=== PATIENT | male | born 1965 | race Caucasian/White ===

== ENCOUNTER 2018-10-13 21:17 | Inpatient (IN) | payer MEDICAID, MEDICARE, OTHER ==
[2018-10-13] MEDS ORDERED: CLON1TAB8 PO (21:43)
[2018-10-13] MEDS ORDERED: ZOLO100T PO (21:44)
[2018-10-13] MEDS ORDERED: ZYPR2.5T2 PO (21:45)
--- NOTE | 2018-10-13 22:15 | REPVR ---
EXAM: CT Head Without Contrast EXAM DATE/TIME: 10/13/2018 9:56 PM CLINICAL HISTORY: 53 years old, male; Signs and symptoms; Altered mental status/memory loss; Confusion or disorientation; Additional info: AMS TECHNIQUE: Axial computed tomography images of the head/brain without contrast. All CT scans at this facility use at least one of these dose optimization techniques: automated exposure control; mA and/or kV adjustment per patient size (includes targeted exams where dose is matched to clinical indication); or iterative reconstruction. STROKE PROTOCOL was implemented. COMPARISON: No relevant prior studies available. FINDINGS: Brain: There is no evidence of infarct, stovall-white matter differentiation is preserved. There is no hemorrhage or extra-axial collection. There is no mass. Ventricles: There is no hydrocephalus. Bones/joints: Unremarkable. No acute fracture. Sinuses: There is mild ethmoid sinus mucosal thickening. Mastoid air cells: Visualized mastoid air cells are unremarkable. No mastoid effusion. Soft tissues: Unremarkable. IMPRESSION: No intracranial lesion or injury. ASSESSMENT: ASPECTS ([place] Stroke Program Early CT Score) is 10. Electronically signed by: Balwinder Elias On 10/13/2018 22:14:39 PM
[2018-10-13 22:23] LABS: BASO # 0.1 10^3/uL (0.0-0.2); BASO % 0.3 % (0.0-1.0); EOS # 0.3 10^3/uL (0.0-0.50); EOS % 1.9 % (0.0-3.0); HEMATOCRIT 44.2 % (42.0-52.0); HEMOGLOBIN 14.6 g/dl (13.5-17.5); LYMPH # 2.8 10^3/uL (1.5-4.5); LYMPH % 18.8 % (24.0-44.0); MEAN CORPUSCULAR HEMOGLOBIN 29.3 pg (27.0-33.0); MEAN CORPUSCULAR VOLUME 88.8 fl (80.0-96.0); MONO # 0.7 10^3/uL (0.0-0.8); MONO % 4.6 % (0.0-5.0); NEUTROPHILS % 73.7 % (36.0-66.0); PLATELET COUNT, AUTOMATED 344 10^3/uL (150-450); RED BLOOD COUNT 4.98 10^6/uL (4.30-6.10); WHITE BLOOD COUNT 14.9 10^3/uL (4.0-10.0)
[2018-10-13] MEDS ORDERED: NS 1,000 ML IV ONE (22:30)
[2018-10-13 22:43] LABS: INR 1.08; PROTHROMBIN TIME 14.1 SECONDS (12.1-14.4)
[2018-10-13 22:44] LABS: PARTIAL THROMBOPLASTIN TIME 24.5 SECONDS (25.4-37.6)
[2018-10-13 22:53] LABS: INFLUENZA A AMPLIFICATION NEGATIVE (NEGATIVE); INFLUENZA B AMPLIFICATION NEGATIVE (NEGATIVE)
[2018-10-13] MEDS ORDERED: ISOVUE-370 76% 100ML VIAL (Q9967) As Ordered ONE (23:20)
[2018-10-13 23:29] LABS: AMPHETAMINES LEVEL URINE NEGATIVE (NEGATIVE); BARBITURATES URINE NEGATIVE (NEGATIVE); BENZODIAZEPINES URINE POSITIVE (NEGATIVE); CANNABINOIDS URINE NEGATIVE (NEGATIVE); COCAINE METABOLITE URINE NEGATIVE (NEGATIVE); METHADONE URINE NEGATIVE (NEGATIVE); OPIATES URINE NEGATIVE (NEGATIVE); PHENCYCLIDINE URINE NEGATIVE (NEGATIVE)
[2018-10-13 23:37] LABS: ACETAMINOPHEN LEVEL < 2.0 UG/ML (10.0-30.0); ALBUMIN 3.1 GM/DL (3.2-5.2); ALT/SGPT 21 U/L (12-78); BILIRUBIN,DIRECT < 0.1 MG/DL (0.0-0.2); BILIRUBIN,TOTAL 0.2 MG/DL (0.2-1.0); BLOOD UREA NITROGEN 13 MG/DL (7-18); CALCIUM LEVEL 7.9 MG/DL (8.5-10.1); CARBON DIOXIDE LEVEL 28 MEQ/L (21-32); CHLORIDE LEVEL 108 MEQ/L (98-107); CPK CREATINE PHOSPHOKINASE 52 U/L (39-308); CREATININE FOR GFR 1.04 MG/DL (0.70-1.30); ETHYL ALCOHOL (ETHANOL) 0.006 % (0.000-0.010); GLOMERULAR FILTRATION RATE > 60.0 (>56); GLUCOSE, FASTING 85 MG/DL (70-100); MB/CK RELATIVE INDEX 2.12 (< OR =4); POTASSIUM SERUM 3.4 MEQ/L (3.5-5.1); SALICYLATE LEVEL < 1.7 MG/DL (5.0-30.0); SODIUM LEVEL 145 MEQ/L (136-145); TOTAL PROTEIN 6.1 GM/DL (6.4-8.2); TROPONIN I < 0.02 NG/ML (< 0.10)
--- NOTE | 2018-10-14 00:12 | REPVR ---
EXAM: CT Angiography Chest With Contrast EXAM DATE/TIME: 10/13/2018 11:14 PM CLINICAL HISTORY: 53 years old, male; Pain; Chest pain; Type not specified TECHNIQUE: Axial computed tomographic angiography images of the chest with intravenous contrast using CT angiography protocol. All CT scans at this facility use at least one of these dose optimization techniques: automated exposure control; mA and/or kV adjustment per patient size (includes targeted exams where dose is matched to clinical indication); or iterative reconstruction. Coronal and sagittal reformatted images were created and reviewed. MIP reconstructed images were created and reviewed. CONTRAST: Contrast Material: 100 ml of iso; Contrast Route: ac COMPARISON: CR Chest, 2 view PA, Lat 10/13/2018 10:02 PM FINDINGS: Pulmonary arteries: There is no evidence of pulmonary arterial emboli. Aorta: There is no evidence of thoracic aortic aneurysm or dissection. Lungs: Normal. No consolidation. No masses. Pleural space: Normal. No pneumothorax. No pleural effusion. Heart: Normal. No cardiomegaly. No pericardial effusion. Lymph nodes: Unremarkable. No enlarged lymph nodes. Bones/joints: Unremarkable. No acute fracture. Soft tissues: Unremarkable. IMPRESSION: 1. No thoracic aortic aneurysm or dissection. 2. No pulmonary emboli. 3. No acute findings. Electronically signed by: Balwinder Elias On 10/14/2018 00:12:29 AM
--- NOTE | 2018-10-14 00:16 | REPVR ---
EXAM: CT Abdomen and Pelvis With Contrast EXAM DATE/TIME: 10/13/2018 10:26 PM CLINICAL HISTORY: 53 years old, male; Pain; Abdominal pain; Generalized; Additional info: Abd pain TECHNIQUE: Axial computed tomography images of the abdomen and pelvis with intravenous contrast. All CT scans at this facility use at least one of these dose optimization techniques: automated exposure control; mA and/or kV adjustment per patient size (includes targeted exams where dose is matched to clinical indication); or iterative reconstruction. Coronal and sagittal reformatted images were created and reviewed. CONTRAST: Contrast Material: 100 ml of iso; Contrast Route: ac COMPARISON: No relevant prior studies available. FINDINGS: Lower thorax: See chest CT ABDOMEN: Liver: The liver is normal. Gallbladder and bile ducts: The gallbladder is normal. Pancreas: Normal. No ductal dilation. Spleen: The spleen is heterogeneous due to the arterial phase imaging. No definite abnormality. The spleen is normal. Adrenals: The adrenal glands are normal. Kidneys and ureters: The kidneys are normal. There is no hydronephrosis. Stomach and bowel: Normal. No obstruction. No mucosal thickening. Appendix: No evidence of appendicitis. PELVIS: Bladder: The bladder is normal with no evidence of calculi. Reproductive: The seminal vesicles are enlarged. ABDOMEN and PELVIS: Intraperitoneal space: Normal. No free air. No significant fluid collection. Bones/joints: Mild anterior compression of T10 and T12. This appears chronic. No acute fracture.. No dislocation. Soft tissues: Unremarkable. Vasculature: There is no abdominal aortic aneurysm or dissection. There is no aneurysm, stenosis or dissection of the iliac arteries. Lymph nodes: Normal. No enlarged lymph nodes. IMPRESSION: 1. No abdominal aortic aneurysm or dissection. No vascular abnormality. 2. No acute findings. Electronically signed by: Balwinder Elias On 10/14/2018 00:16:31 AM
[2018-10-14] MEDS ORDERED: CLON0.5T8 PO (00:34)
[2018-10-14] MEDS ORDERED: ZYPR2.5T2 PO (00:34)
[2018-10-14] MEDS ORDERED: ZOLO100T PO (00:34)
--- NOTE | 2018-10-14 06:25 | HPE ---
DATE OF ADMISSION: 10/13/2018 ATTENDING PHYSICIAN: Dr. Rogers CHIEF COMPLAINT: General sickness. HISTORY OF PRESENT ILLNESS: The patient is a 53-year-old white male with history of post traumatic stress disorder (PTSD) as well as anxiety who presented to the hospital for evaluation of general sickness. History is provided by himself as well as by review of the chart, however, the patient is a poor historian. Per emergency room (ER) staff, the patient stated he was sick for a couple of days with some nausea, vomiting and diarrhea and the ambulance brought him to the ER, however, there is no detailed information available. In the ER, his workup was not significant. It seems that he is confused, so decision to admit him for observation and plan for a psychiatric consultation tomorrow. REVIEW OF SYSTEMS: No fever. No chills. No headache. No blurry vision. No shortness of breath. No chest pain. No abdominal pain. No diarrhea. All other systems reviewed, but negative. PAST MEDICAL HISTORY: 1. PTSD. 2. Severe anxiety. PAST SURGICAL HISTORY: None. FAMILY HISTORY: Unknown. ALLERGIES: No known drug allergies. MEDICATIONS: - clonazepam 0.5 mg as needed - Zyprexa 2.5 mg by mouth daily - Zoloft 150 mg by mouth daily SOCIAL HISTORY: No tobacco use. No alcohol abuse. No illicit drug abuse. He is a full code. He is and lives with his at home. No children. PHYSICAL EXAMINATION: Vitals: Temperature 98.1, pulse 69, respiratory rate 16, blood pressure 134/81, oxygen saturation 98% on room air. General: He is awake, alert and oriented times three. He is in no acute distress. HEENT: Atraumatic. Pupils equal round and reactive to light. No jaundice. Extraocular muscles intact. Ears, nose and throat are normal. Mouth mucous dry. Neck: No jugular venous distention (JVD). No bruits. Lungs: Clear. No wheezes, no crackles. Heart: S1 and S2, regular. No murmur. Abdomen: Soft. Bowel sounds positive. Nontender. Extremities: No edema in bilateral lower extremities. Skin: No rash. Neurologic: Nonfocal. Psychological: No acute psychosis. DIAGNOSTIC AND LAB STUDIES: CBC and differential with WBC 14.9, hemoglobin/hematocrit (H/H) 14.6/44, and platelets 344. Sodium 145, potassium 3.4, chloride 108, bicarbonate 28, BUN 30, creatinine 1.0, glucose 81. Chest x-ray, head CT and CT of abdomen and pelvis all reviewed and normal. IMPRESSION: 1. Altered mental status. 2. Post traumatic stress disorder. 3. Anxiety. PLAN: The patient will be admitted to medical surgical floor for observation. We are continuing his home medications. Will ask for psychiatry evaluation prior to discharge.
--- NOTE | 2018-10-14 07:10 | ECGEPIP ---
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
[2018-10-14 08:00] VITALS: BP 126/72
--- NOTE | 2018-10-14 08:10 | REP ---
PA and lateral chest: There are no comparisons. The lung herrmann are clear. The cardiac size is normal. The marin, mediastinum, and skeletal structures are unremarkable. Impression: Negative PA and lateral chest. Electronically Signed by Florentino Valencia MD 10/14/2018 08:01 A
[2018-10-14 12:23] LABS: HEMATOCRIT 44.8 % (42.0-52.0); HEMOGLOBIN 14.6 g/dl (13.5-17.5); MEAN CORPUSCULAR HGB CONC 32.6 g/dl (32.0-36.5); MEAN CORPUSCULAR VOLUME 89.1 fl (80.0-96.0); PLATELET COUNT, AUTOMATED 338 10^3/uL (150-450); RED BLOOD COUNT 5.03 10^6/uL (4.30-6.10); WHITE BLOOD COUNT 13.6 10^3/uL (4.0-10.0)
[2018-10-14 13:13] LABS: ALT/SGPT 17 U/L (12-78); BILIRUBIN,TOTAL 0.5 MG/DL (0.2-1.0); BLOOD UREA NITROGEN 11 MG/DL (7-18); CALCIUM LEVEL 7.9 MG/DL (8.5-10.1); CARBON DIOXIDE LEVEL 25 MEQ/L (21-32); CHLORIDE LEVEL 106 MEQ/L (98-107); CREATININE FOR GFR 0.96 MG/DL (0.70-1.30); GLOMERULAR FILTRATION RATE > 60.0 (>56); GLUCOSE, FASTING 77 MG/DL (70-100); POTASSIUM SERUM 3.5 MEQ/L (3.5-5.1); SODIUM LEVEL 143 MEQ/L (136-145); THYROID STIMULATING HORMONE 0.813 uIU/ML (0.358-3.740); TOTAL PROTEIN 5.9 GM/DL (6.4-8.2)
[2018-10-14] MEDS ORDERED: HALOPERIDOL 5 MG/ML VIAL (J1630) IV ONE (13:30)
--- NOTE | 2018-10-14 14:22 | IPNPDOC ---
Date Seen The patient was seen on 10/14/18. Progress Note SUBJECTIVE: Pt is slow to respond and does not give history of why he is in the hospital. He says he lives with his . he does not recall if he had diarrhea. c/o weakness. does not recall if he had breakfast or if he had ordered lunch. Per [id number] IRMA, he has been seen in different ERs for "odd behavior" int he past 2 weeks. workup negative. PHYSICAL EXAMINATION: General: He is awake, alert and oriented to person. slow to respond and takes about 5-10 seconds to answer questions.fluent no facial asymmetry HEENT: Atraumatic. Pupils equal round and reactive to light. No jaundice. Extraocular muscles intact. Ears, nose and throat are normal. Mouth mucous dry. Neck: No jugular venous distention (JVD). No bruits. Lungs: Clear. No wheezes, no crackles. Heart: S1 and S2, regular. No murmur. Abdomen: Soft. Bowel sounds positive. Nontender. Extremities: No edema in bilateral lower extremities. Skin: No rash. Neurologic: 5/5 motor no snesory deficit.He is awake, alert and oriented to person. slow to respond and takes about 5-10 seconds to answer questions.fluent no facial asymmetry DIAGNOSTIC AND LAB STUDIES/IMAGING: REVIEWED, PLS SEE BELOW ASSESSMENT AND PLAN: The patient is a 53-year-old white male with history of post traumatic stress disorder (PTSD) as well as anxiety who presented to the hospital for evaluation of general sickness. History is provided by himself as well as by review of the chart, however, the patient is a poor historian. Per emergency room (ER) staff, the patient stated he was sick for a couple of days with some nausea, vomiting and diarrhea and the ambulance brought him to the ER, however, there is no detailed information available. In the ER, his workup was not significant. It seems that he is confused, so decision to admit him for observation and plan for a psychiatric consultation. 1. Altered mental status. workup so far is negative aside from urine tox: benzo obtain records from previous hospitalizations and MD office. MRI brain if not done yet. psychiatrist consulted. will consult neurology if no improvement. no fever and meningeal signs to suspect meningiitis or warrant an lp. 2. Post traumatic stress disorder. 3. Anxiety. VS, I&O, 24H, Fishbone Vital Signs/I&O Vital Signs Date Time Temp Pulse Resp B/P (MAP) Pulse Ox O2 Delivery O2 Flow Rate FiO2 10/14/18 08:00 99.4 79 17 126/72 (90) 93 10/14/18 07:54 Room Air I&O- Last 24 Hours up to 6 AM 10/14/18 06:00 Intake Total 1000 ml Output Total 70 ml Balance 930 ml Laboratory Data 24H LABS Laboratory Tests 2 10/13/18 22:12: Ammonia 29 10/13/18 22:13: Immature Granulocyte % (Auto) 0.7, White Blood Count 14.9H, Red Blood Count 4.98, Hemoglobin 14.6, Hematocrit 44.2, Mean Corpuscular Volume 88.8, Mean Corpuscular Hemoglobin 29.3, Mean Corpuscular Hemoglobin Concent 33.0, Red Cell Distribution Width 13.7, Platelet Count 344, Neutrophils (%) (Auto) 73.7H, Lymphocytes (%) (Auto) 18.8L, Monocytes (%) (Auto) 4.6, Eosinophils (%) (Auto) 1.9, Basophils (%) (Auto) 0.3, Neutrophils # (Auto) 11.0H, Lymphocytes # (Auto) 2.8, Monocytes # (Auto) 0.7, Eosinophils # (Auto) 0.3, Basophils # (Auto) 0.1, Nucleated Red Blood Cells % (auto) 0.0, Anion Gap 9, Glomerular Filtration Rate > 60.0, Lactic Acid Level 0.7, Calcium Level 7.9L, Aspartate Amino Transf (AST/SGOT) 15, Alanine Aminotransferase (ALT/SGPT) 21, Alkaline Phosphatase 47, Total Bilirubin 0.2, Direct Bilirubin < 0.1, Total Creatine Kinase 52, Creatine Kinase MB 1.0, Creatine Kinase MB Relative Index 2.12, Troponin I < 0.02, Total Protein 6.1L, Albumin 3.1L, Albumin/Globulin Ratio 1.03, Thyroid Stimulating Hormone (TSH) 1.600, Salicylates Level < 1.7L, Acetaminophen Level < 2.0L, Ethyl Alcohol Level 0.006, Influenza Type A (RT-PCR) NEGATIVE, Influenza Type B (RT- PCR) NEGATIVE 10/13/18 22:15: Prothrombin Time 14.1, Prothromb Time International Ratio 1.08, Activated Partial Thromboplast Time 24.5L 10/13/18 22:19: Osmolality 297H 10/13/18 23:01: Urine Color YELLOW, Urine Appearance CLEAR, Urine pH 5.0, Urine Specific [place] 1.021, Urine Protein NEGATIVE, Urine Glucose (UA) NEGATIVE, Urine Ketones 1+H, Urine Blood NEGATIVE, Urine Nitrite NEGATIVE, Urine Bilirubin NEGATIVE, Urine Urobilinogen 0.2, Urine Leukocyte Esterase NEGATIVE, Urine WBC (Auto) 1, Urine RBC (Auto) 1, Urine Hyaline Casts (Auto) 0, Urine Bacteria (Auto) NEGATIVE, Urine Squamous Epithelial Cells 0, Urine Mucus (Auto) SMALL, Urine Sperm (Auto) , Urine Amphetamines Screen NEGATIVE, Urine Benzodiazepines Screen POSITIVEH, Urine Opiates Screen NEGATIVE, Urine Methadone Screen NEGATIVE, Urine Barbiturates Screen NEGATIVE, Urine Phencyclidine Screen NEGATIVE, Urine Cocaine Metabolite Screen NEGATIVE, Urine Cannabinoids Screen NEGATIVE 10/14/18 12:06: Nucleated Red Blood Cells % (auto) 0.0, Anion Gap 12, Glomerular Filtration Rate > 60.0, Blood Urea Nitrogen 11, Creatinine 0.96, Sodium Level 143, Potassium Level 3.5, Chloride Level 106, Carbon Dioxide Level 25, Calcium Level 7.9L, Aspartate Amino Transf (AST/SGOT) 13, Alanine Aminotransferase (ALT/SGPT) 17, Alkaline Phosphatase 44L, Total Bilirubin 0.5#, Total Protein 5.9L, Albumin 3.0L, Ammonia 34H, Albumin/Globulin Ratio 1.03, Thyroid Stimulating Hormone (TSH) 0.813 CBC/BMP Laboratory Tests 10/13/18 22:13 Red Blood Count 4.98, Mean Corpuscular Volume 88.8, Mean Corpuscular Hemoglobin 29.3, Mean Corpuscular Hemoglobin Concent 33.0, Red Cell Distribution Width 13.7, Neutrophils (%) (Auto) 73.7 H, Lymphocytes (%) (Auto) 18.8 L, Monocytes (%) (Auto) 4.6, Eosinophils (%) (Auto) 1.9, Basophils (%) (Auto) 0.3, Neutrophils # (Auto) 11.0 H, Lymphocytes # (Auto) 2.8, Monocytes # (Auto) 0.7, Eosinophils # (Auto) 0.3, Basophils # (Auto) 0.1 10/14/18 12:06 Red Blood Count 5.03, Mean Corpuscular Volume 89.1, Mean Corpuscular Hemoglobin 29.0, Mean Corpuscular Hemoglobin Concent 32.6, Red Cell Distribution Width 13.8, Calcium Level 7.9 L, Aspartate Amino Transf (AST/SGOT) 13, Alanine Aminotransferase (ALT/SGPT) 17, Alkaline Phosphatase 44 L, Total Bilirubin 0.5 #, Total Protein 5.9 L, Albumin 3.0 L Microbiology Microbiology 10/13/18 Blood Culture, Received Pending 10/13/18 Blood Culture, Received Pending JOSE CELESTIN MD Oct 14, 2018 14:22
[2018-10-14 14:55] LABS: C REACTIVE PROTEIN QUANTITATIV 0.46 MG/DL (0.00-0.30)
[2018-10-14 15:03] LABS: PROLACTIN 4.1 NG/ML (2.1-17.7)
[2018-10-14 15:57] LABS: ERYTHROCYTE SEDIMENTATION RATE 2 mm/hr (0-20)
[2018-10-14] MEDS: OLANZapine 2.5MG TABLET PO SCH (19:58)
[2018-10-14 22:00] VITALS: BP 129/72
[2018-10-15 05:56] LABS: BASO % 0.3 % (0.0-1.0); EOS # 0.1 10^3/uL (0.0-0.50); EOS % 0.8 % (0.0-3.0); HEMOGLOBIN 14.5 g/dl (13.5-17.5); LYMPH # 1.5 10^3/uL (1.5-4.5); LYMPH % 12.8 % (24.0-44.0); MEAN CORPUSCULAR HEMOGLOBIN 29.2 pg (27.0-33.0); MEAN CORPUSCULAR VOLUME 88.7 fl (80.0-96.0); MONO # 0.5 10^3/uL (0.0-0.8); MONO % 4.1 % (0.0-5.0); NEUTROPHILS # 9.6 10^3/uL (1.8-7.7); NEUTROPHILS % 81.5 % (36.0-66.0); PLATELET COUNT, AUTOMATED 328 10^3/uL (150-450); RED BLOOD COUNT 4.96 10^6/uL (4.30-6.10); WHITE BLOOD COUNT 11.8 10^3/uL (4.0-10.0)
[2018-10-15 06:00] VITALS: BP 120/73
[2018-10-15 06:14] LABS: ERYTHROCYTE SEDIMENTATION RATE 3 mm/hr (0-20)
[2018-10-15 06:21] LABS: ALBUMIN 3.1 GM/DL (3.2-5.2); ALT/SGPT 19 U/L (12-78); BILIRUBIN,TOTAL 0.7 MG/DL (0.2-1.0); BLOOD UREA NITROGEN 14 MG/DL (7-18); C REACTIVE PROTEIN QUANTITATIV 0.33 MG/DL (0.00-0.30); CALCIUM LEVEL 7.7 MG/DL (8.5-10.1); CARBON DIOXIDE LEVEL 25 MEQ/L (21-32); CHLORIDE LEVEL 110 MEQ/L (98-107); CREATININE FOR GFR 1.01 MG/DL (0.70-1.30); GLOMERULAR FILTRATION RATE > 60.0 (>56); GLUCOSE, FASTING 86 MG/DL (70-100); POTASSIUM SERUM 3.6 MEQ/L (3.5-5.1); SODIUM LEVEL 145 MEQ/L (136-145)
[2018-10-15] MEDS: SERTRALINE HCL 50 MG TAB PO SCH (09:56)
--- NOTE | 2018-10-15 11:26 | IPNPDOC ---
Date Seen The patient was seen on 10/15/18. Progress Note SUBJECTIVE:c/o pain in b/l lower quadrant dull achy no radiation. denies constipation, dysuria. negative u/a, negative ct abd pelvis, neg lactic acid. PHYSICAL EXAMINATION: General: He is awake, alert and oriented to person. slow to respond and takes about 5-10 seconds to answer questions.fluent no facial asymmetry HEENT: Atraumatic. Pupils equal round and reactive to light. No jaundice. Extraocular muscles intact. Ears, nose and throat are normal. Mouth mucous dry. Neck: No jugular venous distention (JVD). No bruits. Lungs: Clear. No wheezes, no crackles. Heart: S1 and S2, regular. No murmur. Abdomen: Soft. Bowel sounds positive. no rebound n o guarding Extremities: No edema in bilateral lower extremities. Skin: No rash. Neurologic: 5/5 motor no snesory deficit.He is awake, alert and oriented to person. slow to respond and takes about 5-10 seconds to answer questions.fluent no facial asymmetry DIAGNOSTIC AND LAB STUDIES/IMAGING: REVIEWED, PLS SEE BELOW ASSESSMENT AND PLAN: The patient is a 53-year-old white male with history of post traumatic stress disorder (PTSD) as well as anxiety who presented to the hospital for evaluation of general sickness. History is provided by himself as well as by review of the chart, however, the patient is a poor historian. Per emergency room (ER) staff, the patient stated he was sick for a couple of days with some nausea, vomiting and diarrhea and the ambulance brought him to the ER, however, there is no detailed information available. In the ER, his workup was not significant. It seems that he is confused, so decision to admit him for observation and plan for a psychiatric consultation. 1. Altered mental status. workup so far is negative aside from urine tox: benzo obtain records from previous hospitalizations and MD office. MRI brain if not done yet. psychiatrist consulted. will consult neurology if no improvement. no fever and meningeal signs to suspect meningiitis or warrant an lp. 2. Post traumatic stress disorder. 3. Anxiety. 4. abdominal pain. denies substance abuse to suspect withdrawal. ctabd pelvis ua lactic acid negative. white count decreasing without fever. 5. reactive leukocytosis disposition: medical workup negative. awaiting mri brain and psych consult. VS, I&O, 24H, [facility] Vital Signs/I&O Vital Signs Date Time Temp Pulse Resp B/P (MAP) Pulse Ox O2 Delivery O2 Flow Rate FiO2 10/14/18 22:00 97.8 82 17 129/72 (91) 96 10/14/18 07:54 Room Air I&O- Last 24 Hours up to 6 AM 10/15/18 06:00 Intake Total 240 ml Balance 240 ml Laboratory Data 24H LABS Laboratory Tests 2 10/14/18 12:06: Nucleated Red Blood Cells % (auto) 0.0, Erythrocyte Sedimentation Rate 2, Anion Gap 12, Glomerular Filtration Rate > 60.0, Blood Urea Nitrogen 11, Creatinine 0.96, Sodium Level 143, Potassium Level 3.5, Chloride Level 106, Carbon Dioxide Level 25, Calcium Level 7.9L, Aspartate Amino Transf (AST/SGOT) 13, Alanine Aminotransferase (ALT/SGPT) 17, Alkaline Phosphatase 44L, Total Bilirubin 0.5#, Total Protein 5.9L, Albumin 3.0L, Ammonia 34H, Albumin/Globulin Ratio 1.03, Thyroid Stimulating Hormone (TSH) 0.813 10/15/18 05:40: Nucleated Red Blood Cells % (auto) 0.0, Erythrocyte Sedimentation Rate 3, Anion Gap 10, Glomerular Filtration Rate > 60.0, Blood Urea Nitrogen 14, Creatinine 1.01, Sodium Level 145, Potassium Level 3.6, Chloride Level 110H, Carbon Dioxide Level 25, Calcium Level 7.7L, Aspartate Amino Transf (AST/SGOT) 9, Alanine Aminotransferase (ALT/SGPT) 19, Alkaline Phosphatase 43L, Total Bilirubin 0.7, Total Protein 6.0L, Albumin 3.1L, Ammonia 25, Albumin/Globulin Ratio 1.07, Immature Granulocyte % (Auto) 0.5, White Blood Count 11.8H, Red Blood Count 4.96, Hemoglobin 14.5, Hematocrit 44.0, Mean Corpuscular Volume 88.7, Mean Corpuscular Hemoglobin 29.2, Mean Corpuscular Hemoglobin Concent 33.0, Red Cell Distribution Width 14.1, Platelet Count 328, Neutrophils (%) (Auto) 81.5H, L ymphocytes (%) (Auto) 12.8L, Monocytes (%) (Auto) 4.1, Eosinophils (%) (Auto) 0.8, Basophils (%) (Auto) 0.3, Neutrophils # (Auto) 9.6H, Lymphocytes # (Auto) 1.5, Monocytes # (Auto) 0.5, Eosinophils # (Auto) 0.1, Basophils # (Auto) 0.0, Lactic Acid Level 0.7, C-Reactive Protein, Quantitative 0.33H CBC/BMP Laboratory Tests 10/14/18 12:06 Red Blood Count 5.03, Mean Corpuscular Volume 89.1, Mean Corpuscular Hemoglobin 29.0, Mean Corpuscular Hemoglobin Concent 32.6, Red Cell Distribution Width 13.8, Calcium Level 7.9 L, Aspartate Amino Transf (AST/SGOT) 13, Alanine Aminotransferase (ALT/SGPT) 17, Alkaline Phosphatase 44 L, Total Bilirubin 0.5 #, Total Protein 5.9 L, Albumin 3.0 L 10/15/18 05:40 Red Blood Count 4.96, Mean Corpuscular Volume 88.7, Mean Corpuscular Hemoglobin 29.2, Mean Corpuscular Hemoglobin Concent 33.0, Red Cell Distribution Width 14 .1, Calcium Level 7.7 L, Aspartate Amino Transf (AST/SGOT) 9, Alanine Aminotransferase (ALT/SGPT) 19, Alkaline Phosphatase 43 L, Total Bilirubin 0.7, Total Protein 6.0 L, Albumin 3.1 L, Neutrophils (%) (Auto) 81.5 H, Lymphocytes (%) (Auto) 12.8 L, Monocytes (%) (Auto) 4.1, Eosinophils (%) (Auto) 0.8, Basophils (%) (Auto) 0.3, Neutrophils # (Auto) 9.6 H, Lymphocytes # (Auto) 1.5, Monocytes # (Auto) 0.5, Eosinophils # (Auto) 0.1, Basophils # (Auto) 0.0 Microbiology Microbiology 10/13/18 Blood Culture - Preliminary, Resulted No growth after 24 hours . All specim... 10/13/18 Blood Culture - Preliminary, Resulted No growth after 24 hours . All specim... JOSE CELESTIN MD Oct 15, 2018 07:22
[2018-10-15 14:00] VITALS: BP 125/76
[2018-10-15] MEDS: OLANZapine 2.5MG TABLET PO SCH (19:53)
[2018-10-15 22:00] VITALS: BP 129/75
[2018-10-15] MEDS: clonazePAM 0.5 MG TAB PO PRN (23:45)
[2018-10-16 06:00] VITALS: BP 121/72
[2018-10-16] MEDS: SERTRALINE HCL 50 MG TAB PO SCH (09:23)
--- NOTE | 2018-10-16 12:36 | REP ---
MRI BRAIN WITHOUT CONTRAST: HISTORY: Altered mental status. COMPARISON: CT 10/13/2018. Scattered punctate areas of increased signal intensity on T2-weighted images are present in the periventricular and subcortical white matter and zackery. This represents small vessel ischemic disease. There is no intraparenchymal hemorrhage, infarct, mass or midline shift. The ventricular system is normal in appearance. There is no extracerebral collection. Mucosal thickening is present in the left maxillary sinus. IMPRESSION: Minimal small vessel ischemic disease. Electronically Signed by Ricky Glaser MD 10/17/2018 08:56 A
--- NOTE | 2018-10-16 13:36 | IPNPDOC ---
Date Seen The patient was seen on 10/16/18. Progress Note SUBJECTIVE: MRI brain: small vessel ischemic disease. on asa 81mg daily. awaiting psych eval c/o pain in b/l lower quadrant dull achy no radiation. denies constipation, dysuria. negative u/a, negative ct abd pelvis, neg lactic acid. PHYSICAL EXAMINATION: General: He is awake, alert and oriented to person. slow to respond and takes about 5-10 seconds to answer questions.fluent no facial asymmetry HEENT: Atraumatic. Pupils equal round and reactive to light. No jaundice. Extraocular muscles intact. Ears, nose and throat are normal. Mouth mucous dry. Neck: No jugular venous distention (JVD). No bruits. Lungs: Clear. No wheezes, no crackles. Heart: S1 and S2, regular. No murmur. Abdomen: Soft. Bowel sounds positive. no rebound n o guarding Extremities: No edema in bilateral lower extremities. Skin: No rash. Neurologic: 5/5 motor no snesory deficit.He is awake, alert and oriented to person. slow to respond and takes about 5-10 seconds to answer questions.fluent no facial asymmetry DIAGNOSTIC AND LAB STUDIES/IMAGING: REVIEWED, PLS SEE BELOW ASSESSMENT AND PLAN: The patient is a 53-year-old white male with history of post traumatic stress disorder (PTSD) as well as anxiety who presented to the hospital for evaluation of general sickness. History is provided by himself as well as by review of the chart, however, the patient is a poor historian. Per emergency room (ER) staff, the patient stated he was sick for a couple of days with some nausea, vomiting and diarrhea and the ambulance brought him to the ER, however, there is no detailed information available. In the ER, his workup was not significant. It seems that he is confused, so decision to admit him for observation and plan for a psychiatric consultation. 1. Altered mental status. workup so far is negative aside from urine tox: benzo obtain records from previous hospitalizations and MD office. negative MRI brain psychiatrist consulted. will consult neurology if no improvement. no fever and meningeal signs to suspect meningiitis or warrant an lp. 2. Post traumatic stress disorder. 3. Anxiety. 4. abdominal pain. denies substance abuse to suspect withdrawal. ctabd pelvis ua lactic acid negative. white count decreasing without fever. 5. reactive leukocytosis disposition: dc wednesday if cleared by psychiatrist Dr. Amezcua and physical therapy. VS, I&O, 24H, Fishbone Vital Signs/I&O Vital Signs Date Time Temp Pulse Resp B/P (MAP) Pulse Ox O2 Delivery O2 Flow Rate FiO2 10/16/18 06:00 98.4 87 19 121/72 (88) 95 10/14/18 07:54 Room Air I&O- Last 24 Hours up to 6 AM 10/16/18 06:00 Intake Total 758 ml Output Total 0 ml Balance 758 ml Laboratory Data Microbiology Microbiology 10/13/18 Blood Culture - Preliminary, Resulted No Growth after 48 hours. All Specime... 10/13/18 Blood Culture - Preliminary, Resulted No Growth after 48 hours. All Specime... JOSE CELESTIN MD Oct 16, 2018 10:35
[2018-10-16 14:00] VITALS: BP 112/71
[2018-10-16] MEDS: ASPIRIN 81 MG CHEW TABLET PO SCH (17:41)
[2018-10-16 19:10] VITALS: BP 130/76
[2018-10-16] MEDS: OLANZapine 2.5MG TABLET PO SCH (21:35)
[2018-10-16 22:00] VITALS: BP 133/87
[2018-10-17 06:00] VITALS: BP 124/75
[2018-10-17] MEDS ORDERED: CHIL81CH2 PO (08:53)
[2018-10-17] MEDS: SERTRALINE HCL 50 MG TAB PO SCH (09:18)
[2018-10-17] MEDS: ASPIRIN 81 MG CHEW TABLET PO SCH (09:18)
[2018-10-17] MEDS ORDERED: ONDANSETRON 4 MG TAB (S0181) PO PRN (13:30)
[2018-10-17 14:00] VITALS: BP 122/70
--- NOTE | 2018-10-17 17:52 | IPNPDOC ---
Date Seen The patient was seen on 10/17/18. Progress Note SUBJECTIVE: MRI brain: small vessel ischemic disease. on asa 81mg daily. psych eval: no acute issues, Dr. Amezcua recommends adult protective services.c/o generalized weakness. denies constipation, dysuria. negative u/a, negative ct abd pelvis, neg lactic acid. PHYSICAL EXAMINATION: General: He is awake, alert and oriented to person. slow to respond and takes about 5-10 seconds to answer questions.fluent no facial asymmetry HEENT: Atraumatic. Pupils equal round and reactive to light. No jaundice. Extraocular muscles intact. Ears, nose and throat are normal. Mouth mucous dry. Neck: No jugular venous distention (JVD). No bruits. Lungs: Clear. No wheezes, no crackles. Heart: S1 and S2, regular. No murmur. Abdomen: Soft. Bowel sounds positive. no rebound n o guarding Extremities: No edema in bilateral lower extremities. Skin: No rash. Neurologic: 5/5 motor no snesory deficit.He is awake, alert and oriented to person. slow to respond and takes about 5-10 seconds to answer questions.fluent no facial asymmetry DIAGNOSTIC AND LAB STUDIES/IMAGING: REVIEWED, PLS SEE BELOW ASSESSMENT AND PLAN: The patient is a 53-year-old white male with history of post traumatic stress disorder (PTSD) as well as anxiety who presented to the hospital for evaluation of general sickness. History is provided by himself as well as by review of the chart, however, the patient is a poor historian. Per emergency room (ER) staff, the patient stated he was sick for a couple of days with some nausea, vomiting and diarrhea and the ambulance brought him to the ER, however, there is no detailed information available. In the ER, his workup was not significant. It seems that he is confused, so decision to admit him for observation and plan for a psychiatric consultation. 1. Altered mental status. workup so far is negative aside from urine tox: benzo obtain records from previous hospitalizations and MD office. negative MRI brain psychiatrist consulted. will consult neurology if no improvement. no fever and meningeal signs to suspect meningiitis or warrant an lp. 2. Post traumatic stress disorder. 3. Anxiety. 4. abdominal pain. denies substance abuse to suspect withdrawal. ctabd pelvis ua lactic acid negative. white count decreasing without fever. 5. reactive leukocytosis 6. Generalized weakness: may benefit from neurology consultation and emg/ncs as outpt. disposition: awaiting PT clearance. VS, I&O, 24H, Fishbone Vital Signs/I&O Vital Signs Date Time Temp Pulse Resp B/P (MAP) Pulse Ox O2 Delivery O2 Flow Rate FiO2 10/17/18 14:00 98.2 78 20 122/70 (87) 95 10/14/18 07:54 Room Air I&O- Last 24 Hours up to 6 AM 10/17/18 06:00 Intake Total 998 ml Output Total 375 ml Balance 623 ml Laboratory Data Microbiology Microbiology 10/13/18 Blood Culture - Preliminary, Resulted No Growth after 72 hours. All specime... 10/13/18 Blood Culture - Preliminary, Resulted No Growth after 72 hours. All specime... JOSE CELESTIN MD Oct 17, 2018 17:52
[2018-10-17] MEDS: OLANZapine 2.5MG TABLET PO SCH (20:20)
[2018-10-17] MEDS: clonazePAM 0.5 MG TAB PO PRN (20:24)
[2018-10-17 22:00] VITALS: BP 130/85
[2018-10-18 06:00] VITALS: BP 130/77
[2018-10-18] MEDS: SERTRALINE HCL 50 MG TAB PO SCH (08:38)
[2018-10-18] MEDS: ASPIRIN 81 MG CHEW TABLET PO SCH (08:38)
[2018-10-18 14:00] VITALS: BP 121/75
--- NOTE | 2018-10-18 15:55 | IPNPDOC ---
Text Note Date of Service The patient was seen on 10/18/18. NOTE Subjective: Patient was seen and examined at the bedside. Currently denies any CP, palpitations, SOB or cough. Reports a headache. Denies any abdominal pain, constipation, diarrhea or discomfort with urination. Has been seen ambulating with physical therapy. Objective: Vitals (See below) General: Lying in bed, no acute distress, comfortable, Awake / Alert HEENT: NC, AT CVS: RRR, +S1S2 Lungs: Fair air entry b/l, -w/r/r Abdomen: Soft, ND, NT Extremities: - Edema, - Calf tenderness Assessment and plan: Altered mental status - possibly 2/2 psychiatric etiology, less likely 2/2 infectious etiology, less likely 2/2 neurological etiology - Slow to respond, has regressive behavior - No focal deficits - No signs of infections - UA without signs of infection - CT angio Chest 10/13: 1. No thoracic aortic aneurysm or dissection. 2. No pulmonary emboli. 3. No acute findings. - CT ab/pelvis 10/13: 1. No abdominal aortic aneurysm or dissection. No vascular abnormality. 2. No acute findings. - Brain MRI 10/16: Minimal small vessel ischemic disease. - Psychiatry on consult Weakness / Slow response - c/w Physical therapy PTSD / Anxiety - c/w Sertraline, Clonazepam, Olanzapine, Leukocytosis - likely 2/2 reactive etiology - improving - Afebrile / hemodynamically stable - Will hold off on antibiotics DVT prophylaxis - c/w SCDs Disposition: - Will c/w physical therapy - Will discuss with psychiatry Lyla ARMIJO, I+O VSLyla I+O Vital Signs Date Time Temp Pulse Resp B/P (MAP) Pulse Ox O2 Delivery O2 Flow Rate FiO2 10/18/18 14:00 99.4 79 20 121/75 (90) 94 10/14/18 07:54 Room Air I&O- Last 24 Hours up to 6 AM 10/18/18 06:00 Intake Total 1760 ml Output Total 0 ml Balance 1760 ml ERNIE RICHARDS MD Oct 18, 2018 15:55
[2018-10-18] MEDS: OLANZapine 2.5MG TABLET PO SCH (21:52)
[2018-10-18] MEDS: clonazePAM 0.5 MG TAB PO PRN (21:54)
[2018-10-18 22:00] VITALS: BP 125/74
[2018-10-19 06:00] VITALS: BP 108/61
[2018-10-19 08:27] LABS: BASO % 0.3 % (0.0-1.0); EOS # 0.1 10^3/uL (0.0-0.50); EOS % 0.9 % (0.0-3.0); HEMATOCRIT 46.7 % (42.0-52.0); HEMOGLOBIN 15.3 g/dl (13.5-17.5); LYMPH # 1.6 10^3/uL (1.5-4.5); LYMPH % 18.2 % (24.0-44.0); MEAN CORPUSCULAR HEMOGLOBIN 29.3 pg (27.0-33.0); MEAN CORPUSCULAR HGB CONC 32.8 g/dl (32.0-36.5); MEAN CORPUSCULAR VOLUME 89.3 fl (80.0-96.0); MONO # 0.7 10^3/uL (0.0-0.8); MONO % 7.5 % (0.0-5.0); NEUTROPHILS # 6.3 10^3/uL (1.8-7.7); NEUTROPHILS % 72.9 % (36.0-66.0); PLATELET COUNT, AUTOMATED 249 10^3/uL (150-450); RED BLOOD COUNT 5.23 10^6/uL (4.30-6.10); WHITE BLOOD COUNT 8.6 10^3/uL (4.0-10.0)
[2018-10-19] MEDS: ASPIRIN 81 MG CHEW TABLET PO SCH (08:33)
[2018-10-19] MEDS: SERTRALINE HCL 50 MG TAB PO SCH (08:33)
[2018-10-19 08:54] LABS: BLOOD UREA NITROGEN 16 MG/DL (7-18); CALCIUM LEVEL 8.2 MG/DL (8.5-10.1); CARBON DIOXIDE LEVEL 30 MEQ/L (21-32); CHLORIDE LEVEL 107 MEQ/L (98-107); CREATININE FOR GFR 1.06 MG/DL (0.70-1.30); GLOMERULAR FILTRATION RATE > 60.0 (>56); GLUCOSE, FASTING 94 MG/DL (70-100); MAGNESIUM LEVEL 2.3 MG/DL (1.8-2.4); POTASSIUM SERUM 3.7 MEQ/L (3.5-5.1); SODIUM LEVEL 142 MEQ/L (136-145)
[2018-10-19 14:00] VITALS: BP 127/75
--- NOTE | 2018-10-19 15:49 | IPNPDOC ---
Text Note Date of Service The patient was seen on 10/19/18. NOTE Subjective: Patient was seen and examined at the bedside. Currently patient has no nausea, vomiting, abdominal pain, constipation, diarrhea. Denies chest pain, shortness breath, palpitations. Patient's family is at the bedside. They've indicated that this is not the patient's baseline. I have advised them that we will speak with psychiatry. Objective: Vitals (See below) General: Lying in bed, no acute distress, comfortable, Awake / Alert HEENT: NC, AT CVS: RRR, +S1S2 Lungs: Fair air entry b/l, no evidence of wheezing, rhonchi or rales Abdomen: Soft, nondistended, without tenderness Extremities: No evidence of edema, - Calf tenderness Assessment and plan: Altered mental status - possibly 2/2 psychiatric etiology, less likely 2/2 infectious etiology, less likely 2/2 neurological etiology - Slow to respond; has regressive behavior - No focal deficits - No signs of infections - UA without signs of infection - CT angio Chest 10/13: 1. No thoracic aortic aneurysm or dissection. 2. No pulmonary emboli. 3. No acute findings. - CT ab/pelvis 10/13: 1. No abdominal aortic aneurysm or dissection. No vascular abnormality. 2. No acute findings. - Brain MRI 10/16: Minimal small vessel ischemic disease. - Psychiatry on consult; case has been discussed and will evaluate the patient today Weakness / Slow response - c/w Physical therapy PTSD / Anxiety - c/w Sertraline, Clonazepam, Olanzapine, s/p Leukocytosis - likely 2/2 reactive etiology - improving - Afebrile / hemodynamically stable - Will hold off on antibiotics DVT prophylaxis - c/w SCDs Disposition: - Will c/w physical therapy - Psychiatry evaluation VS,Lyla, I+O VS, Lyla, I+O Laboratory Tests 10/19/18 07:49 Red Blood Count 5.23, Mean Corpuscular Volume 89.3, Mean Corpuscular Hemoglobin 29.3, Mean Corpuscular Hemoglobin Concent 32.8, Red Cell Distribution Width 14.1, Neutrophils (%) (Auto) 72.9 H, Lymphocytes (%) (Auto) 18.2 L, Monocytes (%) (Auto) 7.5 H, Eosinophils (%) (Auto) 0.9, Basophils (%) (Auto) 0.3, Neutrophils # (Auto) 6.3, Lymphocytes # (Auto) 1.6, Monocytes # (Auto) 0.7, Eosinophils # (Auto) 0.1, Basophils # (Auto) 0.0, Calcium Level 8.2 L Vital Signs Date Time Temp Pulse Resp B/P (MAP) Pulse Ox O2 Delivery O2 Flow Rate FiO2 10/19/18 14:00 98.6 86 21 127/75 (92) 96 10/14/18 07:54 Room Air I&O- Last 24 Hours up to 6 AM 10/19/18 06:00 Intake Total 1554 ml Output Total 0 ml Balance 1554 ml ERNIE RICHARDS MD Oct 19, 2018 15:49
--- NOTE | 2018-10-19 17:52 | MHIPNPDOC ---
[facility] Progress Note Progress Note DATE OF SERVICE: 10/19/18 HISTORY: As per Dr. Landa's note: "The patient is a 53-year-old white male with history of post traumatic stress disorder (PTSD) as well as anxiety who presented to the hospital for evaluation of general sickness. History is provided by himself as well as by review of the chart, however, the patient is a poor historian. Per emergency room (ER) staff, the patient stated he was sick for a couple of days with some nausea, vomiting and diarrhea and the ambulance brought him to the ER, however, there is no detailed information available. In the ER, his workup was not significant. It seems that he is confused, so decision to admit him for observation and plan for a psychiatric consultation tomorrow." VITAL SIGNS: See below. NEW TEST RESULTS: See below CURRENT MEDICATIONS: See below. MENTAL STATUS EXAMINATION: Patient is a 53 year old male, who is alert, dressed in hospital clothes, si tting on a recliner, with his next to him watching TV. Speech: Is impoverished, patient is a poor historian, provides very short responses, broken sentences that are incoherent at times. Language skills are poor at this time due to mental status. Thought processes including: Thought blocking, increased latency. Thought content: unable to assess, patient is not responding most of my questions. Abstract reasoning, and computation: unable to assess Description of associations: poor at this time due to patient's altered mental status. Description of abnormal or psychotic thoughts: patient is not paranoid, he seems to be absent, disconnected. Unable to report if he is feeling suicidal or homicidal or psychotic at this time. Judgment: limited due to altered mental status. Insight: limited due to altered mental status. Orientation: unable to assess, patient is a poor historian Recent and remote memory: unable to assess. Attention span and concentration: poor. Language: he is not talking much, he has trouble communicating, but he cries. Fund of knowledge: unable to assess. Mood: depressed. Affect: depressed, tearful. DIAGNOSES: 1. Major Depressive Disorder. 2. R/O Catatonia. 3. R/O Altered mental status secondary to other medical condition (small vessel ischemic disease) 4. PTSD by history 5. OCD by history 6. Panic disorder by disorder 7. Season Affective disorder by history ASSESSMENT: As I approached the patient he looked at me, was visibly nervous but he was able to control himself until he started crying. TW asked him if he remembered why he was brought into the hospital and he started crying. His said that was one of the reasons he was brought to the hospital, because he was very tearful and because he was nauseous, he was vomiting and had diarrhea. She mentioned that the patient is adopted, so, they don't have information about family medical illnesses. 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 He has been taking Sertraline 150 mgs PO daily, Klonopin 1 mg PO QHS, Olanzapine 25 mgs Po QHS, Melatonin 10 mgs Po QHS and vitamin D. His says he didn't sleep for several nights before he started experiencing all these changes. TW believes this is the result of sleep deprivation, he seems to be very depressed, at times he seems to be disassociated, disconnected, absent. He seems to be catatonic at times. MANAGEMENT PLAN: 1. Seroquel 50 mgs PO TID 2. Effexor 37.5 mgs PO QAM 3. Rozerem 8 mgs PO QHS TIME SPENT: 30 minutes. Vital Signs Vital Signs Date Time Temp Pulse Resp B/P (MAP) Pulse Ox O2 Delivery O2 Flow Rate FiO2 10/19/18 14:00 98.6 86 21 127/75 (92) 96 10/14/18 07:54 Room Air Laboratory Data 24H Labs Laboratory Tests 2 10/19/18 07:49: Immature Granulocyte % (Auto) 0.2, White Blood Count 8.6, Red Blood Count 5.23, Hemoglobin 15.3, Hematocrit 46.7, Mean Corpuscular Volume 89.3, Mean Corpuscular Hemoglobin 29.3, Mean Corpuscular Hemoglobin Concent 32.8, Red Cell Distribution Width 14.1, Platelet Count 249, Neutrophils (%) (Auto) 72.9H, Lymphocytes (%) (Auto) 18.2L, Monocytes (%) (Auto) 7.5H, Eosinophils (%) (Auto) 0.9, Basophils (%) (Auto) 0.3, Neutrophils # (Auto) 6.3, Lymphocytes # (Auto) 1.6, Monocytes # (Auto) 0.7, Eosinophils # (Auto) 0.1, Basophils # (Auto) 0.0, Nucleated Red Blood Cells % (auto) 0.0, Anion Gap 5L, Glomerular Filtration Rate > 60.0, Blood Urea Nitrogen 16, Creatinine 1.06, Sodium Level 142, Potassium Level 3.7, Chloride Level 107, Carbon Dioxide Level 30, Calcium Level 8.2L, Magnesium Level 2.3 CBC/BMP Laboratory Tests 10/19/18 07:49 Red Blood Count 5.23, Mean Corpuscular Volume 89.3, Mean Corpuscular Hemoglobin 29.3, Mean Corpuscular Hemoglobin Concent 32.8, Red Cell Distribution Width 14.1, Neutrophils (%) (Auto) 72.9 H, Lymphocytes (%) (Auto) 18.2 L, Monocytes (%) (Auto) 7.5 H, Eosinophils (%) (Auto) 0.9, Basophils (%) (Auto) 0.3, Neutrophils # (Auto) 6.3, Lymphocytes # (Auto) 1.6, Monocytes # (Auto) 0.7, Eosinophils # (Auto) 0.1, Basophils # (Auto) 0.0, Calcium Level 8.2 L Current Medications Current Medications Acetaminophen (Tylenol Tab) 650 mg Q4HP PRN PO MILD PAIN OR FEVER; Start 10/14/18 at 00:30 Aspirin (Aspirin Chewable) 81 mg DAILY PO Last administered on 10/19/18at 08:33; Start 10/16/18 at 09:00 Clonazepam (KlonoPIN) 0.5 mg DAILY PRN PO ANXIETY Last administered on 10/18/18at 21:54; Start 10/14/18 at 14:30; Stop 10/19/18 at 12:05; Status DC Clonazepam (KlonoPIN) 0.5 mg QHS PO ; Start 10/19/18 at 21:00 Home Med (Med Rec Complete!) ASDIRECTED XX ; Start 10/14/18 at 00:45; Stop 10/14/18 at 00:45; Status DC Olanzapine (ZyPREXA) 2.5 mg QHS PO Last administered on 10/18/18at 21:52; Start 10/14/18 at 21:00 Ondansetron HCl (Zofran) 4 mg Q6HP PRN PO NAUSEA OR VOMITING; Start 10/17/18 at 13:30 Sertraline HCl (Zoloft) 150 mg DAILY PO Last administered on 10/19/18at 08:33; Start 10/15/18 at 09:00 Allergies Coded Allergies: No Known Allergies (Unverified , 10/13/18) JOSLYN HULL MD Oct 19, 2018 17:24
[2018-10-19] MEDS: clonazePAM 0.5 MG TAB PO SCH (20:02)
[2018-10-19] MEDS: QUEtiapine FUMARATE 50 MG TAB PO SCH (20:02)
[2018-10-19] MEDS: RAMELTEON 8 MG TAB (ROZEREM) PO SCH (20:02)
[2018-10-19 22:00] VITALS: BP 134/92
[2018-10-20 06:00] VITALS: BP 114/69
[2018-10-20 06:26] LABS: HEMATOCRIT 44.3 % (42.0-52.0); MEAN CORPUSCULAR HEMOGLOBIN 29.8 pg (27.0-33.0); MEAN CORPUSCULAR HGB CONC 33.9 g/dl (32.0-36.5); MEAN CORPUSCULAR VOLUME 87.9 fl (80.0-96.0); PLATELET COUNT, AUTOMATED 217 10^3/uL (150-450); RED BLOOD COUNT 5.04 10^6/uL (4.30-6.10); WHITE BLOOD COUNT 10.4 10^3/uL (4.0-10.0)
[2018-10-20 06:46] LABS: BLOOD UREA NITROGEN 16 MG/DL (7-18); CALCIUM LEVEL 8.1 MG/DL (8.5-10.1); CARBON DIOXIDE LEVEL 30 MEQ/L (21-32); CHLORIDE LEVEL 105 MEQ/L (98-107); CREATININE FOR GFR 1.03 MG/DL (0.70-1.30); GLOMERULAR FILTRATION RATE > 60.0 (>56); GLUCOSE, FASTING 96 MG/DL (70-100); MAGNESIUM LEVEL 2.2 MG/DL (1.8-2.4); POTASSIUM SERUM 3.7 MEQ/L (3.5-5.1); SODIUM LEVEL 141 MEQ/L (136-145)
[2018-10-20] MEDS: ASPIRIN 81 MG CHEW TABLET PO SCH (08:26)
[2018-10-20] MEDS: QUEtiapine FUMARATE 50 MG TAB PO SCH ×2 (08:26→20:09)
[2018-10-20] MEDS: VENLAFAXINE 37.5 MG TAB PO SCH (08:26)
--- NOTE | 2018-10-20 12:27 | IPNPDOC ---
Text Note Date of Service The patient was seen on 10/20/18. NOTE Subjective: Patient was seen and examined at the bedside. Currently he was seen laying in bed. Family was present at bedside. Patient was arousable to pain. Admitted that he was up earlier using the bathroom. Later on he was working with physical therapy. Objective: Vitals (See below) General: Lying in bed, no acute distress, comfortable, Sleepy but awakes with physical stimulation HEENT: NC, AT CVS: RRR, +S1S2 Lungs: Fair air entry b/l, auscultation is without any evidence of wheezing, rhonchi or rales Abdomen: Soft, without distention or tendernes Extremities: No evidence of edema, - Calf tenderness Assessment and plan: Altered mental status - possibly 2/2 psychiatric etiology, less likely 2/2 in fectious etiology, less likely 2/2 neurological etiology - Has been more sleepy today - No focal deficits - No signs of infections - UA without signs of infection - CT angio Chest 10/13: 1. No thoracic aortic aneurysm or dissection. 2. No pulmonary emboli. 3. No acute findings. - CT ab/pelvis 10/13: 1. No abdominal aortic aneurysm or dissection. No vascular abnormality. 2. No acute findings. - Brain MRI 10/16: Minimal small vessel ischemic disease. - Psychiatry on consult; psychiatric medications have been adjusted Weakness / Slow response - c/w Physical therapy PTSD / Anxiety - medications have been adjusted Leukocytosis - likely 2/2 reactive etiology - Afebrile / hemodynamically stable - UA clear / CTA without acute findings - Will hold off on antibiotics DVT prophylaxis - c/w SCDs Disposition: - Will c/w physical therapy - Psychiatry following VS,Margaritae, I+O VS, Fishbone, I+O Laboratory Tests 10/20/18 05:49 Red Blood Count 5.04, Mean Corpuscular Volume 87.9, Mean Corpuscular Hemoglobin 29.8, Mean Corpuscular Hemoglobin Concent 33.9, Red Cell Distribution Width 14.2 10/20/18 05:50 Calcium Level 8.1 L Vital Signs Date Time Temp Pulse Resp B/P (MAP) Pulse Ox O2 Delivery O2 Flow Rate FiO2 10/20/18 06:00 98.3 93 18 114/69 (84) 93 10/14/18 07:54 Room Air I&O- Last 24 Hours up to 6 AM 10/20/18 06:00 Intake Total 1360 ml Output Total 0 ml Balance 1360 ml ERNIE RICHARDS MD Oct 20, 2018 12:27
[2018-10-20 14:00] VITALS: BP 138/70
[2018-10-20] MEDS: clonazePAM 0.5 MG TAB PO SCH (20:09)
[2018-10-20] MEDS: RAMELTEON 8 MG TAB (ROZEREM) PO SCH (20:09)
[2018-10-20] MEDS: ACETAMINOPHEN TAB 650MG DOSE (2X325MG) PO PRN (20:09)
[2018-10-21 06:00] VITALS: BP 109/63
[2018-10-21 06:15] LABS: HEMATOCRIT 45.8 % (42.0-52.0); HEMOGLOBIN 15.1 g/dl (13.5-17.5); MEAN CORPUSCULAR HEMOGLOBIN 29.3 pg (27.0-33.0); MEAN CORPUSCULAR VOLUME 88.9 fl (80.0-96.0); PLATELET COUNT, AUTOMATED 221 10^3/uL (150-450); RED BLOOD COUNT 5.15 10^6/uL (4.30-6.10); WHITE BLOOD COUNT 6.8 10^3/uL (4.0-10.0)
[2018-10-21 06:30] LABS: BLOOD UREA NITROGEN 20 MG/DL (7-18); CALCIUM LEVEL 8.4 MG/DL (8.5-10.1); CARBON DIOXIDE LEVEL 30 MEQ/L (21-32); CHLORIDE LEVEL 105 MEQ/L (98-107); GLOMERULAR FILTRATION RATE > 60.0 (>56); GLUCOSE, FASTING 88 MG/DL (70-100); MAGNESIUM LEVEL 2.2 MG/DL (1.8-2.4); SODIUM LEVEL 140 MEQ/L (136-145)
[2018-10-21] MEDS ORDERED: VITAMIN D 50,000 UNITS CAPSULE (ERGOCALCIFEROL 1.25MG) PO SCH (09:00)
[2018-10-21] MEDS: ASPIRIN 81 MG CHEW TABLET PO SCH (10:34)
[2018-10-21] MEDS: VENLAFAXINE 37.5 MG TAB PO SCH (10:34)
[2018-10-21] MEDS: QUEtiapine FUMARATE 50 MG TAB PO SCH ×3 (10:35→21:08)
--- NOTE | 2018-10-21 13:54 | IPNPDOC ---
Text Note Date of Service The patient was seen on 10/21/18. NOTE Subjective: Patient was seen and examined at the bedside. Patient was able to converse and indicate his name, where he was and what the date was. When asked about the president he was unsure. His is indicated that he was able to feed himself this morning. She denies any problems overnight. Objective: Vitals (See below) General: Lying in bed, no acute distress, comfortable, AAOx3 HEENT: NC, AT CVS: RRR, +S1S2 Lungs: Fair air entry b/l, no evidence of rhonchi, wheezing or rales upon auscultation Abdomen: Soft, does not appear to be tender or distended Extremities: No evidence of lower extremity edema, - Calf tenderness Assessment and plan: Altered mental status - possibly 2/2 psychiatric etiology, less likely 2/2 infectious etiology, less likely 2/2 neurological etiology - Mentation appears to be improving, although slow - No focal deficits - No signs of infections - UA without signs of infection - CT angio Chest 10/13: 1. No thoracic aortic aneurysm or dissection. 2. No pulmonary emboli. 3. No acute findings. - CT ab/pelvis 10/13: 1. No abdominal aortic aneurysm or dissection. No vascular a bnormality. 2. No acute findings. - Brain MRI 10/16: Minimal small vessel ischemic disease. - Psychiatry on consult; psychiatric medications have been adjusted Weakness / Slow response - c/w Physical therapy PTSD / Anxiety - medications have been adjusted s/p Leukocytosis - likely 2/2 reactive etiology - Afebrile / hemodynamically stable - UA clear / CTA without acute findings - Will hold off on antibiotics DVT prophylaxis - c/w SCDs Disposition: - Will c/w physical therapy - Psychiatry following VS,Fishbone, I+O VS, Fishbone, I+O Laboratory Tests 10/21/18 05:34 Red Blood Count 5.15, Mean Corpuscular Volume 88.9, Mean Corpuscular Hemoglobin 29.3, Mean Corpuscular Hemoglobin Concent 33.0, Red Cell Distribution Width 14.1, Calcium Level 8.4 L Vital Signs Date Time Temp Pulse Resp B/P (MAP) Pulse Ox O2 Delivery O2 Flow Rate FiO2 10/21/18 06:00 98.3 67 17 109/63 (78) 96 I&O- Last 24 Hours up to 6 AM 10/21/18 06:00 Intake Total 960 ml Output Total 0 ml Balance 960 ml ERNIE RICHARDS MD Oct 21, 2018 13:54
[2018-10-21 14:00] VITALS: BP 110/75
[2018-10-21] MEDS: clonazePAM 0.5 MG TAB PO SCH (21:04)
[2018-10-21] MEDS: RAMELTEON 8 MG TAB (ROZEREM) PO SCH (21:04)
[2018-10-21] MEDS: ACETAMINOPHEN TAB 650MG DOSE (2X325MG) PO PRN (21:05)
[2018-10-21 22:00] VITALS: BP 138/75
[2018-10-22 06:00] VITALS: BP 107/68
[2018-10-22 06:54] LABS: HEMATOCRIT 45.5 % (42.0-52.0); HEMOGLOBIN 14.9 g/dl (13.5-17.5); MEAN CORPUSCULAR HEMOGLOBIN 29.6 pg (27.0-33.0); MEAN CORPUSCULAR HGB CONC 32.7 g/dl (32.0-36.5); MEAN CORPUSCULAR VOLUME 90.5 fl (80.0-96.0); PLATELET COUNT, AUTOMATED 238 10^3/uL (150-450); RED BLOOD COUNT 5.03 10^6/uL (4.30-6.10); WHITE BLOOD COUNT 7.1 10^3/uL (4.0-10.0)
[2018-10-22 07:25] LABS: BLOOD UREA NITROGEN 24 MG/DL (7-18); CALCIUM LEVEL 8.4 MG/DL (8.5-10.1); CARBON DIOXIDE LEVEL 29 MEQ/L (21-32); CHLORIDE LEVEL 105 MEQ/L (98-107); CREATININE FOR GFR 1.01 MG/DL (0.70-1.30); GLOMERULAR FILTRATION RATE > 60.0 (>56); GLUCOSE, FASTING 83 MG/DL (70-100); MAGNESIUM LEVEL 2.2 MG/DL (1.8-2.4); POTASSIUM SERUM 4.2 MEQ/L (3.5-5.1); SODIUM LEVEL 139 MEQ/L (136-145)
--- NOTE | 2018-10-22 08:07 | REP ---
Chest one-view HISTORY: Cough Comparison: 10/13/2018 The lungs are clear. The heart is normal in size. The pulmonary vasculature is normal in appearance. Impression: No acute disease. Electronically Signed by Ricky Glaser MD 10/22/2018 07:59 A
[2018-10-22] MEDS: ASPIRIN 81 MG CHEW TABLET PO SCH (10:39)
[2018-10-22] MEDS: VENLAFAXINE 37.5 MG TAB PO SCH (10:39)
[2018-10-22] MEDS: QUEtiapine FUMARATE 50 MG TAB PO SCH ×3 (10:39→20:32)
[2018-10-22] MEDS: ACETAMINOPHEN TAB 650MG DOSE (2X325MG) PO PRN ×2 (10:41→16:04)
--- NOTE | 2018-10-22 11:52 | IPNPDOC ---
Text Note Date of Service The patient was seen on 10/22/18. NOTE Subjective: Patient was seen and examined at the bedside. Again patient is conversing and is oriented 3. He is aware of the president is. He noted that he was able to eat breakfast on his own without assistance. Patient has been having increased ambulation distances. Currently, he denies any chest pain, shortness of breath or palpitations. He does note a cough. Denies any abdominal pain, nausea, vomiting, diarrhea, constipation. Denies any urinary discomfort. Objective: Vitals (See below) General: Lying in bed, no acute distress, comfortable, AAOx3 HEENT: NC, AT CVS: RRR, +S1S2 Lungs: Fair air entry b/l, auscultation is without any wheezing, rhonchi or rales Abdomen: Remains soft, nondistended, without tenderness Extremities: Lower extremities do not reveal any evidence of edema, - Calf tenderness Assessment and plan: Altered mental status - possibly 2/2 psychiatric etiology, less likely 2/2 inf ectious etiology, less likely 2/2 neurological etiology - Remains oriented 3, is able to recall details from yesterday - Has been progressing with physical therapy and has been able to care for hers elf - No focal deficits - No signs of infections - UA without signs of infection - CT angio Chest 10/13: 1. No thoracic aortic aneurysm or dissection. 2. No pulmonary emboli. 3. No acute findings. - CT ab/pelvis 10/13: 1. No abdominal aortic aneurysm or dissection. No vascular abnormality. 2. No acute findings. - Brain MRI 10/16: Minimal small vessel ischemic disease. - Psychiatry on consult; psychiatric medications have been adjusted - Will continue with physical therapy Weakness / Slow response - c/w Physical therapy PTSD / Anxiety - medications have been adjusted s/p Leukocytosis - likely 2/2 reactive etiology - Afebrile / hemodynamically stable - UA clear / CTA without acute findings - CXR 10/21: No acute disease. - Will hold off on antibiotics DVT prophylaxis - c/w SCDs Disposition: - Will c/w physical therapy - Psychiatry following VS,Fishbone, I+O VS, Fishbone, I+O Laboratory Tests 10/22/18 05:12 Red Blood Count 5.03, Mean Corpuscular Volume 90.5, Mean Corpuscular Hemoglobin 29.6, Mean Corpuscular Hemoglobin Concent 32.7, Red Cell Distribution Width 14.1, Calcium Level 8.4 L Vital Signs Date Time Temp Pulse Resp B/P (MAP) Pulse Ox O2 Delivery O2 Flow Rate FiO2 10/22/18 06:00 97.4 75 18 107/68 (81) 94 I&O- Last 24 Hours up to 6 AM 10/22/18 06:00 Intake Total 1480 ml Output Total 300 ml Balance 1180 ml RENIE RICHARDS MD Oct 22, 2018 11:52
[2018-10-22 14:00] VITALS: BP 98/55
[2018-10-22] MEDS: clonazePAM 0.5 MG TAB PO SCH (20:32)
[2018-10-22] MEDS: RAMELTEON 8 MG TAB (ROZEREM) PO SCH (20:32)
[2018-10-22 22:00] VITALS: BP 112/70
[2018-10-23 05:59] LABS: HEMATOCRIT 46.5 % (42.0-52.0); HEMOGLOBIN 15.2 g/dl (13.5-17.5); MEAN CORPUSCULAR HEMOGLOBIN 29.4 pg (27.0-33.0); MEAN CORPUSCULAR HGB CONC 32.7 g/dl (32.0-36.5); MEAN CORPUSCULAR VOLUME 89.9 fl (80.0-96.0); PLATELET COUNT, AUTOMATED 242 10^3/uL (150-450); RED BLOOD COUNT 5.17 10^6/uL (4.30-6.10); WHITE BLOOD COUNT 6.4 10^3/uL (4.0-10.0)
[2018-10-23 06:00] VITALS: BP 102/63
[2018-10-23 06:31] LABS: BLOOD UREA NITROGEN 23 MG/DL (7-18); CALCIUM LEVEL 8.3 MG/DL (8.5-10.1); CARBON DIOXIDE LEVEL 30 MEQ/L (21-32); CHLORIDE LEVEL 103 MEQ/L (98-107); CREATININE FOR GFR 1.08 MG/DL (0.70-1.30); GLOMERULAR FILTRATION RATE > 60.0 (>56); GLUCOSE, FASTING 84 MG/DL (70-100); MAGNESIUM LEVEL 2.1 MG/DL (1.8-2.4); POTASSIUM SERUM 4.5 MEQ/L (3.5-5.1); SODIUM LEVEL 138 MEQ/L (136-145)
[2018-10-23] MEDS: ASPIRIN 81 MG CHEW TABLET PO SCH (08:09)
[2018-10-23] MEDS: VENLAFAXINE 37.5 MG TAB PO SCH (08:09)
[2018-10-23] MEDS: QUEtiapine FUMARATE 50 MG TAB PO SCH ×3 (08:09→20:05)
[2018-10-23] MEDS: guaiFENesin ER 600 MG TAB PO SCH ×2 (09:00→20:05)
--- NOTE | 2018-10-23 13:13 | IPNPDOC ---
Text Note Date of Service The patient was seen on 10/23/18. NOTE Subjective: Patient was seen and examined at the bedside. Patient is shown continued improvement today. He has begun to show some facial expressions and continues to converse appropriately. Patient is oriented 3 and is aware of the president is. He denies chest pain, shortness of breath or palpitations. Still notes a cough. He denies any nausea, vomiting, abdominal pain, constipation, diarrhea or discomfort with urination. Objective: Vitals (See below) General: Lying in bed, no acute distress, comfortable, AAOx3 HEENT: NC, AT CVS: RRR, +S1S2 Lungs: Fair air entry b/l, no evidence of wheezing, rhonchi, rales Abdomen: Abdomen is soft without distention or tenderness Extremities: No pitting edema bilaterally, - Calf tenderness Assessment and plan: Altered mental status - possibly 2/2 psychiatric etiology, less likely 2/2 infectious etiology, less likely 2/2 neurological etiology - Remains oriented 3, conversing appropriately, displaying facial expressions and emotions - Has been progressing with physical therapy and has been able to care for herself - No focal deficits - No signs of infections - UA without signs of infection - CT angio Chest 10/13: 1. No thoracic aortic aneurysm or dissection. 2. No pulmonary emboli. 3. No acute findings. - CT ab/pelvis 10/13: 1. No abdominal aortic aneurysm or dissection. No vascular abnormality. 2. No acute findings. - Brain MRI 10/16: Minimal small vessel ischemic disease. - Psychiatry on consult; psychiatric medications have been adjusted - will cont inue with current regimen at this time - Will continue with physical therapy Weakness / Slow response - c/w Physical therapy PTSD / Anxiety - medications have been adjusted s/p Leukocytosis - likely 2/2 reactive etiology - Afebrile / hemodynamically stable - UA clear / CTA without acute findings - CXR 10/21: No acute disease. - Will hold off on antibiotics - Will start Mucinex DVT prophylaxis - c/w SCDs Disposition: - Will c/w physical therapy - Psychiatry following VS,Fishbone, I+O VS, Fishbone, I+O Laboratory Tests 10/23/18 05:34 Red Blood Count 5.17, Mean Corpuscular Volume 89.9, Mean Corpuscular Hemoglobin 29.4, Mean Corpuscular Hemoglobin Concent 32.7, Red Cell Distribution Width 13.8, Calcium Level 8.3 L Vital Signs Date Time Temp Pulse Resp B/P (MAP) Pulse Ox O2 Delivery O2 Flow Rate FiO2 10/23/18 06:00 97.0 62 18 102/63 (76) 97 I&O- Last 24 Hours up to 6 AM 10/23/18 06:00 Intake Total 1230 ml Output Total 0 ml Balance 1230 ml ERNIE RICHARDS MD Oct 23, 2018 13:13
[2018-10-23 14:00] VITALS: BP 107/69
[2018-10-23] MEDS: clonazePAM 0.5 MG TAB PO SCH (20:05)
[2018-10-23] MEDS: RAMELTEON 8 MG TAB (ROZEREM) PO SCH (20:05)
[2018-10-23 22:00] VITALS: BP 116/68
[2018-10-24 06:00] VITALS: BP 101/65
[2018-10-24 06:24] LABS: HEMATOCRIT 46.2 % (42.0-52.0); MEAN CORPUSCULAR HEMOGLOBIN 29.2 pg (27.0-33.0); MEAN CORPUSCULAR HGB CONC 32.5 g/dl (32.0-36.5); MEAN CORPUSCULAR VOLUME 89.9 fl (80.0-96.0); PLATELET COUNT, AUTOMATED 286 10^3/uL (150-450); RED BLOOD COUNT 5.14 10^6/uL (4.30-6.10); WHITE BLOOD COUNT 8.3 10^3/uL (4.0-10.0)
[2018-10-24 06:53] LABS: BLOOD UREA NITROGEN 24 MG/DL (7-18); CALCIUM LEVEL 8.3 MG/DL (8.5-10.1); CARBON DIOXIDE LEVEL 28 MEQ/L (21-32); CHLORIDE LEVEL 105 MEQ/L (98-107); CREATININE FOR GFR 1.15 MG/DL (0.70-1.30); GLOMERULAR FILTRATION RATE > 60.0 (>56); GLUCOSE, FASTING 83 MG/DL (70-100); MAGNESIUM LEVEL 2.2 MG/DL (1.8-2.4); POTASSIUM SERUM 3.9 MEQ/L (3.5-5.1); SODIUM LEVEL 138 MEQ/L (136-145)
[2018-10-24] MEDS ORDERED: NS 1,000 ML IV SCH (07:30)
[2018-10-24] MEDS: VENLAFAXINE 37.5 MG TAB PO SCH (08:35)
[2018-10-24] MEDS: ASPIRIN 81 MG CHEW TABLET PO SCH (08:35)
[2018-10-24] MEDS: guaiFENesin ER 600 MG TAB PO SCH ×2 (08:35→20:33)
[2018-10-24] MEDS: QUEtiapine FUMARATE 50 MG TAB PO SCH ×3 (08:35→20:33)
[2018-10-24 14:00] VITALS: BP 101/61
--- NOTE | 2018-10-24 14:10 | IPNPDOC ---
Text Note Date of Service The patient was seen on 10/24/18. NOTE Subjective: Patient was seen and examined at the bedside. Has been conversing and smiling. Has been taking care of myself. Denies any CP, SOB or palpitations. Denies any N/V, abdominal pain, C/D or discomfort with urination. Objective: Vitals (See below) General: Lying in bed, no acute distress, comfortable, AAOx3 HEENT: NC, AT CVS: RRR, +S1S2 Lungs: Fair air entry b/l, - wheezing/rhonchi or rales Abdomen: Soft without tenderness/distension Extremities: LE without pitting edema, - Calf tenderness Assessment and plan: Altered mental status - possibly 2/2 psychiatric etiology, less likely 2/2 infectious etiology, less likely 2/2 neurological etiology - Remains oriented 3, conversing appropriately, conversing appropriately, displaying emotions - Has been performing ADLs - No focal deficits - No signs of infections - UA without signs of infection - CT angio Chest 10/13: 1. No thoracic aortic aneurysm or dissection. 2. No pulmonary emboli. 3. No acute findings. - CT ab/pelvis 10/13: 1. No abdominal aortic aneurysm or dissection. No vascular abnormality. 2. No acute findings. - Brain MRI 10/16: Minimal small vessel ischemic disease. - Psychiatry on consult; psychiatric medications have been adjusted - will continue with current regimen at this time - Will continue with PT; slow progression Weakness / Slow response - c/w Physical therapy PTSD / Anxiety - medications have been adjusted s/p Leukocytosis - likely 2/2 reactive etiology - Afebrile / hemodynamically stable - UA clear / CTA without acute findings - CXR 10/21: No acute disease. - Will hold off on antibiotics - c/w Mucinex DVT prophylaxis - c/w SCDs Disposition: - Will c/w physical therapy - Psychiatry following VS,Tobybone, I+O VS, Fishbone, I+O Laboratory Tests 10/24/18 05:56 Red Blood Count 5.14, Mean Corpuscular Volume 89.9, Mean Corpuscular Hemoglobin 29.2, Mean Corpuscular Hemoglobin Concent 32.5, Red Cell Distribution Width 13.7, Calcium Level 8.3 L Vital Signs Date Time Temp Pulse Resp B/P (MAP) Pulse Ox O2 Delivery O2 Flow Rate FiO2 10/24/18 06:00 98.7 78 18 101/65 (88) 94 I&O- Last 24 Hours up to 6 AM 10/24/18 06:00 Intake Total 1280 ml Output Total 100 ml Balance 1180 ml ERNIE RICHARDS MD Oct 24, 2018 14:10
[2018-10-24] MEDS: clonazePAM 0.5 MG TAB PO SCH (20:33)
[2018-10-24] MEDS: RAMELTEON 8 MG TAB (ROZEREM) PO SCH (20:33)
[2018-10-24 22:00] VITALS: BP 113/67
[2018-10-25 06:00] VITALS: BP 82/60
[2018-10-25 06:28] LABS: HEMATOCRIT 43.7 % (42.0-52.0); HEMOGLOBIN 14.2 g/dl (13.5-17.5); MEAN CORPUSCULAR HEMOGLOBIN 29.3 pg (27.0-33.0); MEAN CORPUSCULAR HGB CONC 32.5 g/dl (32.0-36.5); MEAN CORPUSCULAR VOLUME 90.1 fl (80.0-96.0); PLATELET COUNT, AUTOMATED 261 10^3/uL (150-450); RED BLOOD COUNT 4.85 10^6/uL (4.30-6.10); WHITE BLOOD COUNT 6.5 10^3/uL (4.0-10.0)
[2018-10-25 06:44] LABS: BLOOD UREA NITROGEN 18 MG/DL (7-18); CALCIUM LEVEL 7.9 MG/DL (8.5-10.1); CARBON DIOXIDE LEVEL 28 MEQ/L (21-32); CHLORIDE LEVEL 107 MEQ/L (98-107); CREATININE FOR GFR 0.93 MG/DL (0.70-1.30); GLOMERULAR FILTRATION RATE > 60.0 (>56); GLUCOSE, FASTING 81 MG/DL (70-100); MAGNESIUM LEVEL 2.1 MG/DL (1.8-2.4); POTASSIUM SERUM 3.9 MEQ/L (3.5-5.1); SODIUM LEVEL 140 MEQ/L (136-145)
[2018-10-25] MEDS ORDERED: NS 500 ML IV ONE (06:45)
[2018-10-25 08:06] LABS: ACETYLCHOLINE RCPTOR BINDING A < 0.03 nmol/L (0.00-0.24)
[2018-10-25] MEDS: QUEtiapine FUMARATE 50 MG TAB PO SCH ×3 (08:50→21:13)
[2018-10-25] MEDS: guaiFENesin ER 600 MG TAB PO SCH ×2 (08:50→21:13)
[2018-10-25] MEDS: VENLAFAXINE 37.5 MG TAB PO SCH (08:50)
[2018-10-25] MEDS: ASPIRIN 81 MG CHEW TABLET PO SCH (08:50)
--- NOTE | 2018-10-25 10:25 | IPNPDOC ---
Date Seen The patient was seen on 10/25/18. Progress Note SUBJECTIVE: per at the bedside. 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 PHYSICAL EXAMINATION: General: He is awake, alert and oriented to person. slow to respond and takes about 5-10 seconds to answer questions.fluent no facial asymmetry HEENT: Atraumatic. Pupils equal round and reactive to light. No jaundice. Extraocular muscles intact. Ears, nose and throat are normal. Mouth mucous dry. Neck: No jugular venous distention (JVD). No bruits. Lungs: Clear. No wheezes, no crackles. Heart: S1 and S2, regular. No murmur. Abdomen: Soft. Bowel sounds positive. no rebound n o guarding Extremities: No edema in bilateral lower extremities. Skin: No rash. Neurologic: 5/5 motor no snesory deficit.He is awake, alert and oriented to person. slow to respond and takes about 5-10 seconds to answer questions.fluent no facial asymmetry DIAGNOSTIC AND LAB STUDIES/IMAGING: REVIEWED, PLS SEE BELOW ASSESSMENT AND PLAN: The patient is a 53-year-old white male with history of post traumatic stress disorder (PTSD) as well as anxiety who presented to the hospital for evaluation of general sickness. History is provided by himself as well as by review of the chart, however, the patient is a poor historian. Per emergency room (ER) staff, the patient stated he was sick for a couple of days with some nausea, vomiting and diarrhea and the ambulance brought him to the ER, however, there is no detailed information available. In the ER, his workup was not significant. It seems that he is confused, so decision to admit him for observation and plan for a psychiatric consultation. 1. Altered mental status. workup so far is negative aside from urine tox: benzo obtain records from previous hospitalizations and MD office. negative MRI brain psychiatrist consulted who adjsuted meds 2. Post traumatic stress disorder.psych to adjust meds 3. Anxiety. 4. abdominal pain. denies substance abuse to suspect withdrawal. ctabd pelvis ua lactic acid negative. white count decreasing without fever. 5. dysuria check urine c&s disposition: awaiting PT clearance. VS, I&O, 24H, Fishbone Vital Signs/I&O Vital Signs Date Time Temp Pulse Resp B/P (MAP) Pulse Ox O2 Delivery O2 Flow Rate FiO2 10/25/18 06:00 98.0 58 17 82/60 (67) 98 I&O- Last 24 Hours up to 6 AM 10/25/18 06:00 Intake Total 960 ml Output Total 0 ml Balance 960 ml Laboratory Data 24H LABS Laboratory Tests 2 10/25/18 05:28: Nucleated Red Blood Cells % (auto) 0.0, Anion Gap 5L, Glomerular Filtration Rate > 60.0, Blood Urea Nitrogen 18, Creatinine 0.93, Sodium Level 140, Potassium Level 3.9, Chloride Level 107, Carbon Dioxide Level 28, Calcium Level 7.9L, Magnesium Level 2.1 CBC/BMP Laboratory Tests 10/25/18 05:28 Red Blood Count 4.85, Mean Corpuscular Volume 90.1, Mean Corpuscular Hemoglobin 29.3, Mean Corpuscular Hemoglobin Concent 32.5, Red Cell Distribution Width 13.7, Calcium Level 7.9 L JOSE CELESTIN MD Oct 25, 2018 10:25
[2018-10-25 14:00] VITALS: BP 110/66
[2018-10-25] MEDS: clonazePAM 0.5 MG TAB PO SCH (21:12)
[2018-10-25] MEDS: RAMELTEON 8 MG TAB (ROZEREM) PO SCH (21:12)
[2018-10-25 22:00] VITALS: BP 112/71
[2018-10-26 06:00] VITALS: BP 106/58
[2018-10-26 06:08] LABS: HEMATOCRIT 43.5 % (42.0-52.0); HEMOGLOBIN 14.2 g/dl (13.5-17.5); MEAN CORPUSCULAR HEMOGLOBIN 29.3 pg (27.0-33.0); MEAN CORPUSCULAR HGB CONC 32.6 g/dl (32.0-36.5); MEAN CORPUSCULAR VOLUME 89.9 fl (80.0-96.0); PLATELET COUNT, AUTOMATED 271 10^3/uL (150-450); RED BLOOD COUNT 4.84 10^6/uL (4.30-6.10); WHITE BLOOD COUNT 6.2 10^3/uL (4.0-10.0)
[2018-10-26 06:33] LABS: BLOOD UREA NITROGEN 14 MG/DL (7-18); CALCIUM LEVEL 8.1 MG/DL (8.5-10.1); CARBON DIOXIDE LEVEL 26 MEQ/L (21-32); CHLORIDE LEVEL 108 MEQ/L (98-107); CREATININE FOR GFR 1.04 MG/DL (0.70-1.30); GLOMERULAR FILTRATION RATE > 60.0 (>56); GLUCOSE, FASTING 84 MG/DL (70-100); POTASSIUM SERUM 3.8 MEQ/L (3.5-5.1); SODIUM LEVEL 139 MEQ/L (136-145)
[2018-10-26] MEDS: ASPIRIN 81 MG CHEW TABLET PO SCH (09:49)
[2018-10-26] MEDS: guaiFENesin ER 600 MG TAB PO SCH (09:50)
[2018-10-26] MEDS: QUEtiapine FUMARATE 50 MG TAB PO SCH (09:50)
[2018-10-26] MEDS: VENLAFAXINE 37.5 MG TAB PO SCH (09:50)
[2018-10-26] MEDS ORDERED: DRIS50003 PO (10:55)
[2018-10-26] MEDS ORDERED: QUET5TAB PO (10:55)
[2018-10-26] MEDS ORDERED: ROZE8TAB16 PO (10:55)
[2018-10-26] MEDS ORDERED: MUCI600T37 PO (10:55)
[2018-10-26] MEDS ORDERED: VENL37TA PO (10:55)
[2018-10-26] MEDS ORDERED: CLON0.5T8 PO (10:55)
--- NOTE | 2018-10-26 17:41 | DS.PDOC ---
Discharge Summary General Date of Admission Oct 14, 2018 at 14:28 Date of Discharge 10/26/18 Discharge Summary CONSULTANTS: PSYCHIATRIST-DR. HENRIQUEZ DISCHARGE DIAGNOSES: ALTERED MENTAL STATUS SMALL VESSEL ISCHEMIC DISEASE ON MRI BRAIN PTSD ANXIETY DISCHARGE MEDICATIONS: PLS SEE BELOW HISTORY OF PRESENTING ILLNESS: The patient is a 53-year-old white male with history of post traumatic stress disorder (PTSD) as well as anxiety who presented to the hospital for evaluation of general sickness. History is provided by himself as well as by review of the chart, however, the patient is a poor historian. Per emergency room (ER) staff, the patient stated he was sick for a couple of days with some nausea, vomiting and diarrhea and the ambulance brought him to the ER, however, there is no detailed information available. In the ER, his workup was not significant. It seems that he is confused, so decision to admit him for observation and plan for a psychiatric consultation. HOSPITAL COURSE: Altered mental status. workup so far is negative aside from urine tox: benzo obtain records from previous hospitalizations and MD office. negative MRI brain psychiatrist consulted who adjsuted meds. MRI BRAIN: small vessel ischemic disease on ASA. Generalized weakness and Gait disturbance may benefit from outpatient neurology referral for further evaluation with EMG NCS studies. Post traumatic stress disorder.psych adjusted meds Anxiety.adjusted meds abdominal pain, resolved denies substance abuse to suspect withdrawal. ctabd pelvis ua lactic acid negative. white count decreasing without fever. DISCHARGE PHYSICAL EXAMINATION: General: He is awake, alert and oriented to person. slow to respond and takes about 5-10 seconds to answer questions.fluent no facial asymmetry HEENT: Atraumatic. Pupils equal round and reactive to light. No jaundice. Extraocular muscles intact. Ears, nose and throat are normal. Mouth mucous dry. Neck: No jugular venous distention (JVD). No bruits. Lungs: Clear. No wheezes, no crackles. Heart: S1 and S2, regular. No murmur. Abdomen: Soft. Bowel sounds positive. no rebound n o guarding Extremities: No edema in bilateral lower extremities. Skin: No rash. Neurologic: 5/5 motor no snesory deficit.He is awake, alert and oriented to person. slow to respond and takes about 5-10 seconds to answer questions.fluent no facial asymmetry DIAGNOSTIC AND LAB STUDIES/IMAGING: REVIEWED, PLS SEE BELOW TIME SPENT ON DISCHARGE: 30 MIN DISPOSITION: DISCHARGE HOME WITH 01/03 CARE BY , HOME PHYSICAL THERAPY. Vital Signs/I&Os Vital Signs Date Time Temp Pulse Resp B/P (MAP) Pulse Ox O2 Delivery O2 Flow Rate FiO2 10/26/18 06:00 98.1 63 16 106/58 (74) 96 I&O- Last 24 Hours up to 6 AM 10/26/18 06:00 Intake Total 2280 ml Output Total 1425 ml Balance 855 ml Laboratory Data Labs 24H Laboratory Tests 2 10/26/18 05:38: Nucleated Red Blood Cells % (auto) 0.0, Anion Gap 5L, Glomerular Filtration Rate > 60.0, Blood Urea Nitrogen 14, Creatinine 1.04, Sodium Level 139, Potassium Level 3.8, Chloride Level 108H, Carbon Dioxide Level 26, Calcium Level 8.1L, Magnesium Level 2.0 CBC/BMP Laboratory Tests 10/26/18 05:38 Red Blood Count 4.84, Mean Corpuscular Volume 89.9, Mean Corpuscular Hemoglobin 29.3, Mean Corpuscular Hemoglobin Concent 32.6, Red Cell Distribution Width 13.9, Calcium Level 8.1 L Discharge Medications Scheduled Aspirin (Childrens Aspirin) 81 Mg Chew, 81 MG PO DAILY Clonazepam (Clonazepam) 0.5 Mg Tab, 0.5 MG PO QHS Guaifenesin (Mucinex) 600 Mg Tab, 600 MG PO BID Quetiapine Fumerate (Quetiapine Fumarate) 50 Mg Tab, 50 MG PO TID Ramelteon (Rozerem) 8 Mg Tab, 8 MG PO QHS Venlafaxine HCl (Venlafaxine HCl) 37.5 Mg Tab, 37.5 MG PO QAM Vitamin D (Drisdol) 50,000 Unit Cap, 50,000 UNITS PO Fr@09 Allergies Coded Allergies: No Known Allergies (Unverified , 10/13/18) JOSE CELESTIN MD Oct 26, 2018 17:41
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
== END 2018-10-26 14:10 | disposition home health service (06) | DRG 948 ==
LOC: M ED 21:17 → M ED INP 21:18 → M MSPAV 10-14 08:13 → OBSVTOIN 10-14 14:28
PROVIDERS: ADMIT Hospitalist; ATTEND General Practice
DX: R41.82 Altered mental status, unspecified (principal); F20.2 Catatonic schizophrenia; F43.10 Post-traumatic stress disorder, unspecified; R53.1 Weakness; F32.9 Major depressive disorder, single episode, unspecified; F41.0 Panic disorder [episodic paroxysmal anxiety]; R30.0 Dysuria; R26.9 Unspecified abnormalities of gait and mobility; R10.9 Unspecified abdominal pain; Z79.899 Other long term (current) drug therapy

== ENCOUNTER 2024-06-21 06:00 | Inpatient (IN) | payer MEDICARE, MEDICAID ==
[~2024-06-21] VITALS: Ht 167.6 cm; Wt 59.4 kg
[~2024-06-21 06:00] MED LIST: BENZ0.5T2 PO; CLON0.5T2 PO; CLON1TAB8 PO; DRIS50003 PO; HYDR-3363 PO; LEVE500T5 PO; LEVE750T5 PO; MELA10CA6 PO; MUCI600T37 PO; OLAN1TAB16 PO; PANT40TA29 PO; PERI12LIQ MT; QUET50TA4 PO; ROZE8TAB16 PO; SM C81CH2 PO; VENL150C43 PO; VENL37TA PO; VENL75CA47 PO; ZOLO100T PO; ZYPR2.5T2 PO
[2024-06-21 06:38] LABS: VENOUS BASE EXCESS -0.9 (-2.0-2.0); VENOUS HCO3 23.2 MMOL/L (23.0-27.0); VENOUS O2 SATURATION 98.6 % (60.0-80.0); VENOUS PARTIAL PRESSURE CO2 36.5 mmHg (38.0-50.0); VENOUS PARTIAL PRESSURE O2 134.4 mmHg (30.0-50.0); VENOUS PH 7.421 UNITS (7.330-7.430); VENOUS STANDARD HCO3 23.8 MMOL/L; VENOUS TOTAL CO2 24.3 MMOL/L (24.0-28.0)
[2024-06-21] MEDS: LORazepam 2 MG/ML 1ML VIAL IV STA (06:42)
[2024-06-21 06:47] LABS: BASO % 0.2 % (0.0-1.0); EOS % 0.1 % (0.0-3.0); HEMATOCRIT 36.3 % (42.0-52.0); HEMOGLOBIN 12.1 g/dl (13.5-17.5); LYMPH % 6.5 % (24.0-44.0); MEAN CORPUSCULAR HEMOGLOBIN 29.3 pg (27.0-33.0); MEAN CORPUSCULAR HGB CONC 33.3 g/dl (32.0-36.5); MEAN CORPUSCULAR VOLUME 87.9 fl (80.0-96.0); MONO # 1.1 10^3/uL (0.0-0.8); MONO % 7.5 % (2.0-8.0); NEUTROPHILS # 12.9 10^3/uL (1.5-8.5); NEUTROPHILS % 85.1 % (36.0-66.0); PLATELET COUNT, AUTOMATED 398 10^3/uL (150-450); RED BLOOD COUNT 4.13 10^6/uL (4.30-6.10); WHITE BLOOD COUNT 15.2 10^3/uL (4.0-10.0)
[2024-06-21] MEDS: NS 2,000 ML in IV 1 EA IV ONE (06:49)
[2024-06-21 06:50] LABS: ETHYL ALCOHOL (ETHANOL) < 0.003 % (0.000-0.010)
[2024-06-21 06:51] LABS: AMYLASE 80 U/L (30-118); CPK CREATINE PHOSPHOKINASE 94 U/L (46-171); SALICYLATE LEVEL < 3.0 MG/DL (<30)
[2024-06-21 06:52] LABS: ALBUMIN 2.8 G/DL (3.2-5.2); ALKALINE PHOSPHATASE 44 U/L (40-129); ALT/SGPT 28 U/L (7.0-40); AST/SGOT 13 U/L (<34); BILIRUBIN,DIRECT 0.3 MG/DL (<0.4); BILIRUBIN,TOTAL 0.8 MG/DL (0.3-1.2); BLOOD UREA NITROGEN 15 MG/DL (9-23); CALCIUM LEVEL 8.3 MG/DL (8.5-10.1); CARBON DIOXIDE LEVEL 25 MMOL/L (20-31); CHLORIDE LEVEL 109 MMOL/L (98-107); CK-MB VALUE MASS 1.2 NG/ML (<3.6); CREATININE FOR GFR 1.07 MG/DL (0.70-1.30); GLOMERULAR FILTRATION RATE > 60.0 (>56); GLUCOSE, FASTING 116 MG/DL (60-100); MB/CK RELATIVE INDEX 1.27 (< OR =4); POTASSIUM SERUM 4.5 MMOL/L (3.5-5.1); SODIUM LEVEL 139 MMOL/L (136-145); TOTAL PROTEIN 6.2 G/DL (5.7-8.2)
[2024-06-21 07:03] LABS: PROCALCITONIN 0.04 ng/ml
[2024-06-21 07:10] LABS: INR 1.13; PARTIAL THROMBOPLASTIN TIME 26.6 SECONDS (24.8-34.2); PROTHROMBIN TIME 14.8 SECONDS (12.5-14.5)
[2024-06-21] MEDS ORDERED: HYDR-3363 PO (08:26)
[2024-06-21] MEDS ORDERED: ZYPR5TAB2 PO (08:26)
[2024-06-21] MEDS ORDERED: VENL100T PO (08:26)
[2024-06-21] MEDS ORDERED: BENZ0.5T2 PO (08:26)
[2024-06-21] MEDS ORDERED: VENL75TA2 PO (08:26)
[2024-06-21] MEDS ORDERED: HOME MED LIST COMPLETE! XX SCH (08:30)
[2024-06-21 08:59] LABS: CK-MB VALUE MASS 1.2 NG/ML (<3.6)
[2024-06-21] MEDS ORDERED: VENLAFAXINE 25 MG TAB PO SCH (09:00)
[2024-06-21 09:01] LABS: CPK CREATINE PHOSPHOKINASE 93 U/L (46-171); MB/CK RELATIVE INDEX 1.29 (< OR =4)
[2024-06-21] MEDS ORDERED: VENL225T32 PO (10:35)
[2024-06-21] MEDS: MAGNESIUM CITRATE 300ML BTL PO ONE ×2 (10:39→16:04)
[2024-06-21] MEDS ORDERED: VENL75CA47 PO (10:41)
[2024-06-21] MEDS ORDERED: VENLAFAXINE **XR** 75MG CAPSULE PO SCH (11:05)
[2024-06-21] MEDS: VENLAFAXINE **XR** 75MG CAPSULE PO SCH (11:10)
[2024-06-21] MEDS: OLANZapine 5 MG TAB PO SCH (11:10)
[2024-06-21] MEDS: PANTOPRAZOLE 40MG TAB (PROTONIX) PO SCH (11:10)
[2024-06-21] MEDS: OLANZapine ORAL DISINTEGRATING TAB 5MG PO ONE (13:23)
[2024-06-21 16:03] LABS: APPEARANCE, URINE CLEAR (CLEAR); BACTERIA, URINE AUTO NEGATIVE (NEGATIVE); BILIRUBIN, URINE AUTO NEGATIVE (NEGATIVE); BLOOD, URINE BLOOD NEGATIVE (NEGATIVE); COLOR, URINE YELLOW (YELLOW); GLUCOSE, URINE (UA) AUTO NEGATIVE (NEGATIVE); KETONE, URINE AUTO TRACE mg/dL (NEGATIVE); LEUKOCYTE ESTERASE, URINE AUTO NEGATIVE (NEGATIVE); NITRITE, URINE AUTO NEGATIVE (NEGATIVE); PROTEIN, URINE AUTO NEGATIVE (NEGATIVE); RBC, URINE AUTO 0 /HPF (0-3); SPECIFIC GRAVITY URINE AUTO 1.044 (1.002-1.035); SQUAMOUS EPITHELIAL CELL UR AU 2 /HPF (0-6); UROBILINOGEN, URINE AUTO 0.2 mg/dL (0.0-2.0); WBC, URINE AUTO 1 /HPF (0-3)
[2024-06-21 16:19] LABS: AMPHETAMINES LEVEL URINE NEGATIVE (NEGATIVE); BARBITURATES URINE NEGATIVE (NEGATIVE); BENZODIAZEPINES URINE NEGATIVE (NEGATIVE); CANNABINOIDS URINE NEGATIVE (NEGATIVE); COCAINE METABOLITE URINE NEGATIVE (NEGATIVE); METHADONE URINE NEGATIVE (NEGATIVE); OPIATES URINE NEGATIVE (NEGATIVE); PHENCYCLIDINE URINE NEGATIVE (NEGATIVE)
[2024-06-21] MEDS ORDERED: MOM 30ML SUSPENSION UDC PO PRN (20:15)
[2024-06-21] MEDS ORDERED: IBUPROFEN 400MG TAB PO PRN (20:15)
[2024-06-21 20:45] VITALS: BP 120/83; TEMP 97.2; O2SAT 98
[2024-06-21] MEDS: BENZTROPINE 0.5 MG TAB PO SCH (22:12)
[2024-06-21] MEDS: diphenhydrAMINE 25MG CAP PO PRN (23:00)
[2024-06-21] MEDS: traZODone 50 MG TAB PO PRN (23:00)
[2024-06-21] MEDS: OLANZapine ORAL DISINTEGRATING TAB 5MG PO PRN (23:33)
[2024-06-22] MEDS ORDERED: PANTOPRAZOLE 40MG TAB (PROTONIX) PO SCH (09:00)
[2024-06-22] MEDS ORDERED: OLANZapine 5 MG TAB PO SCH ×2 (09:00→21:00)
[2024-06-22] MEDS ORDERED: VENLAFAXINE 25 MG TAB PO SCH (09:00)
[2024-06-22] MEDS: FLUBLOK(EGGFREE) TRIVAL(24-25) VACCINE PF 0.5ML SYRINGE 18YRS & OLDER IM.IMMUN ONE (09:23)
[2024-06-22 15:28] VITALS: BP 140/95; TEMP 97.6; O2SAT 96
[2024-06-22] MEDS: levETIRAcetam 250MG TABLET (KEPPRA) PO SCH (21:01)
[2024-06-22] MEDS: MIRALAX *UNIT DOSE* 17GM PACKET PO SCH (21:02)
[2024-06-22] MEDS: LIDOCAINE 5% (LIDODERM) PATCH TD SCH (21:02)
[2024-06-22] MEDS: THIAMINE 100 MG TAB PO SCH (21:02)
[2024-06-23 07:12] LABS: HEMATOCRIT 37.6 % (42.0-52.0); HEMOGLOBIN 12.4 g/dl (13.5-17.5); MEAN CORPUSCULAR HEMOGLOBIN 29.6 pg (27.0-33.0); MEAN CORPUSCULAR VOLUME 89.7 fl (80.0-96.0); PLATELET COUNT, AUTOMATED 351 10^3/uL (150-450); RED BLOOD COUNT 4.19 10^6/uL (4.30-6.10); WHITE BLOOD COUNT 11.1 10^3/uL (4.0-10.0)
[2024-06-23 07:45] LABS: CORTISOL AM 37.3 UG/DL (4.3-22.4)
[2024-06-23 08:09] LABS: BLOOD UREA NITROGEN 22 MG/DL (9-23); CALCIUM LEVEL 8.9 MG/DL (8.5-10.1); CARBON DIOXIDE LEVEL 26 MMOL/L (20-31); CHLORIDE LEVEL 106 MMOL/L (98-107); CREATININE FOR GFR 1.09 MG/DL (0.70-1.30); FREE T4 1.74 NG/DL (0.89-1.76); GLOMERULAR FILTRATION RATE > 60.0 (>56); GLUCOSE, FASTING 67 MG/DL (60-100); POTASSIUM SERUM 4.1 MMOL/L (3.5-5.1); SODIUM LEVEL 141 MMOL/L (136-145); THYROID STIMULATING HORMONE 2.083 uIU/ML (0.55-4.78); VITAMIN B12 LEVEL 465 PG/ML (211-911)
[2024-06-23] MEDS: SENNA 8.6 MG TAB (SENOKOT) PO SCH (09:10)
[2024-06-23] MEDS: OLANZapine 5 MG TAB PO SCH (09:10)
[2024-06-23] MEDS: VENLAFAXINE **XR** 75MG CAPSULE PO SCH (09:10)
[2024-06-23] MEDS: PANTOPRAZOLE 40MG TAB (PROTONIX) PO SCH (09:10)
[2024-06-23 15:07] VITALS: BP 141/90; TEMP 97.8; O2SAT 97
[2024-06-24] MEDS: ACETAMINOPHEN 325 MG TAB PO PRN (01:38)
[2024-06-24] MEDS: HALOPERIDOL LACTATE 5MG/ML VIAL IM STA (03:00)
[2024-06-24] MEDS: OLANZapine ORAL DISINTEGRATING TAB 5MG PO STA (22:01)
[2024-06-25 06:48] VITALS: BP 132/73; TEMP 98.7; O2SAT 95
[2024-06-25] MEDS: LORazepam 1 MG TAB PO ONE (08:16)
[2024-06-25 10:41] LABS: HEMATOCRIT 33.5 % (42.0-52.0); HEMOGLOBIN 11.1 g/dl (13.5-17.5); MEAN CORPUSCULAR HEMOGLOBIN 29.9 pg (27.0-33.0); MEAN CORPUSCULAR HGB CONC 33.1 g/dl (32.0-36.5); MEAN CORPUSCULAR VOLUME 90.3 fl (80.0-96.0); PLATELET COUNT, AUTOMATED 216 10^3/uL (150-450); RED BLOOD COUNT 3.71 10^6/uL (4.30-6.10); WHITE BLOOD COUNT 8.8 10^3/uL (4.0-10.0)
[2024-06-25 11:06] LABS: BLOOD UREA NITROGEN 28 MG/DL (9-23); CALCIUM LEVEL 8.3 MG/DL (8.5-10.1); CARBON DIOXIDE LEVEL 30 MMOL/L (20-31); CHLORIDE LEVEL 110 MMOL/L (98-107); CREATININE FOR GFR 1.15 MG/DL (0.70-1.30); GLOMERULAR FILTRATION RATE > 60.0 (>56); GLUCOSE, FASTING 103 MG/DL (60-100); POTASSIUM SERUM 4.2 MMOL/L (3.5-5.1); SODIUM LEVEL 146 MMOL/L (136-145)
[2024-06-25 15:31] VITALS: BP 136/90; TEMP 97.9; O2SAT 98
[2024-06-25] MEDS: DIVALPROEX 500 MG TAB PO SCH (19:46)
[2024-06-25 23:04] LABS: CK-MB VALUE MASS 2.8 NG/ML (<3.6)
[2024-06-25 23:05] LABS: MB/CK RELATIVE INDEX 1.16 (< OR =4)
[2024-06-26 06:19] VITALS: BP 114/76; TEMP 97.9; O2SAT 94
[2024-06-26] MEDS: levETIRAcetam 250MG TABLET (KEPPRA) PO SCH (08:11)
[2024-06-26] MEDS: DIVALPROEX SPRINKLE 125 MG CAP PO SCH (08:11)
[2024-06-26 15:48] VITALS: BP 133/84; TEMP 97.8
[2024-06-26 19:16] VITALS: O2SAT 94
[2024-06-27 06:48] VITALS: BP 137/82; TEMP 98.1; O2SAT 97
[2024-06-27 07:36] LABS: BLOOD UREA NITROGEN 37 MG/DL (9-23); CALCIUM LEVEL 8.7 MG/DL (8.5-10.1); CARBON DIOXIDE LEVEL 30 MMOL/L (20-31); CHLORIDE LEVEL 114 MMOL/L (98-107); CPK CREATINE PHOSPHOKINASE 133 U/L (46-171); CREATININE FOR GFR 1.27 MG/DL (0.70-1.30); GLOMERULAR FILTRATION RATE > 60.0 (>56); GLUCOSE, FASTING 86 MG/DL (60-100); POTASSIUM SERUM 4.3 MMOL/L (3.5-5.1); SODIUM LEVEL 152 MMOL/L (136-145)
[2024-06-27 13:43] LABS: ANA SCREEN, IFA NEGATIVE (NEGATIVE)
[2024-06-27 21:10] VITALS: BP 155/92; TEMP 98.2; O2SAT 100
[2024-06-27 22:19] LABS: BASO % 0.2 % (0.0-1.0); EOS # 0.3 10^3/uL (0.0-0.5); EOS % 2.7 % (0.0-3.0); HEMATOCRIT 36.3 % (42.0-52.0); HEMOGLOBIN 11.8 g/dl (13.5-17.5); LYMPH # 1.7 10^3/uL (1.5-5.0); LYMPH % 15.6 % (24.0-44.0); MEAN CORPUSCULAR HEMOGLOBIN 29.7 pg (27.0-33.0); MEAN CORPUSCULAR HGB CONC 32.5 g/dl (32.0-36.5); MEAN CORPUSCULAR VOLUME 91.4 fl (80.0-96.0); MONO # 0.6 10^3/uL (0.0-0.8); MONO % 5.8 % (2.0-8.0); NEUTROPHILS # 8.1 10^3/uL (1.5-8.5); NEUTROPHILS % 75.3 % (36.0-66.0); PLATELET COUNT, AUTOMATED 183 10^3/uL (150-450); RED BLOOD COUNT 3.97 10^6/uL (4.30-6.10); WHITE BLOOD COUNT 10.7 10^3/uL (4.0-10.0)
[2024-06-27] MEDS: MAALOX 30 ML SUSP *UDC PO PRN (22:21)
[2024-06-27 22:42] LABS: LIPASE 26 U/L (12-53)
[2024-06-27 22:45] LABS: ALBUMIN 2.6 G/DL (3.2-5.2); ALKALINE PHOSPHATASE 43 U/L (40-129); ALT/SGPT 26 U/L (7.0-40); AST/SGOT 19 U/L (<34); BILIRUBIN,TOTAL 0.4 MG/DL (0.3-1.2); BLOOD UREA NITROGEN 30 MG/DL (9-23); CALCIUM LEVEL 8.5 MG/DL (8.5-10.1); CARBON DIOXIDE LEVEL 31 MMOL/L (20-31); CHLORIDE LEVEL 110 MMOL/L (98-107); CK-MB VALUE MASS 4.7 NG/ML (<3.6); CREATININE FOR GFR 1.03 MG/DL (0.70-1.30); GLOMERULAR FILTRATION RATE > 60.0 (>56); GLUCOSE, FASTING 108 MG/DL (60-100); POTASSIUM SERUM 3.7 MMOL/L (3.5-5.1); SODIUM LEVEL 146 MMOL/L (136-145)
[2024-06-27 22:58] LABS: PROCALCITONIN 0.07 ng/ml
[2024-06-27 23:12] LABS: CPK CREATINE PHOSPHOKINASE 302 U/L (46-171); MB/CK RELATIVE INDEX 1.55 (< OR =4)
[2024-06-28 00:44] LABS: CK-MB VALUE MASS 3.9 NG/ML (<3.6)
[2024-06-28 00:45] LABS: MB/CK RELATIVE INDEX 1.35 (< OR =4)
[2024-06-28 06:28] VITALS: BP 137/77; TEMP 98.2; O2SAT 95
[2024-06-28] MEDS: ALBUTEROL 90 MCG/ACT 8GM HFA INHALER INH SCH (08:17)
[2024-06-28 09:00] LABS: BLOOD UREA NITROGEN 24 MG/DL (9-23); CALCIUM LEVEL 8.5 MG/DL (8.5-10.1); CARBON DIOXIDE LEVEL 31 MMOL/L (20-31); CHLORIDE LEVEL 110 MMOL/L (98-107); CREATININE FOR GFR 1.03 MG/DL (0.70-1.30); GLOMERULAR FILTRATION RATE > 60.0 (>56); GLUCOSE, FASTING 92 MG/DL (60-100); POTASSIUM SERUM 3.7 MMOL/L (3.5-5.1); SODIUM LEVEL 147 MMOL/L (136-145)
[2024-06-28 16:01] VITALS: BP 128/82; TEMP 97.2; O2SAT 98
[2024-06-29 06:38] VITALS: BP 122/73; TEMP 97.1; O2SAT 100
[2024-06-29 13:12] LABS: LYME TOTAL ANTIBODY CIA <= 0.90 Index (<=0.90)
[2024-06-29 15:00] VITALS: BP 111/79; TEMP 97.9; O2SAT 93
[2024-06-30 05:44] LABS: HEMATOCRIT 39.5 % (42.0-52.0); HEMOGLOBIN 12.9 g/dl (13.5-17.5); MEAN CORPUSCULAR HEMOGLOBIN 29.3 pg (27.0-33.0); MEAN CORPUSCULAR HGB CONC 32.7 g/dl (32.0-36.5); MEAN CORPUSCULAR VOLUME 89.8 fl (80.0-96.0); PLATELET COUNT, AUTOMATED 124 10^3/uL (150-450); WHITE BLOOD COUNT 6.1 10^3/uL (4.0-10.0)
[2024-06-30 06:02] LABS: ALBUMIN 2.7 G/DL (3.2-5.2); ALKALINE PHOSPHATASE 40 U/L (40-129); ALT/SGPT 24 U/L (7.0-40); AST/SGOT 16 U/L (<34); BILIRUBIN,TOTAL 0.3 MG/DL (0.3-1.2); BLOOD UREA NITROGEN 17 MG/DL (9-23); CALCIUM LEVEL 8.3 MG/DL (8.5-10.1); CARBON DIOXIDE LEVEL 28 MMOL/L (20-31); CHLORIDE LEVEL 109 MMOL/L (98-107); CREATININE FOR GFR 0.86 MG/DL (0.70-1.30); GLOMERULAR FILTRATION RATE > 60.0 (>56); GLUCOSE, FASTING 82 MG/DL (60-100); POTASSIUM SERUM 3.8 MMOL/L (3.5-5.1); SODIUM LEVEL 144 MMOL/L (136-145)
[2024-06-30 06:42] VITALS: BP 102/67; TEMP 98.2; O2SAT 97
[2024-06-30 16:36] VITALS: BP 119/72; TEMP 98; O2SAT 99
[2024-07-01 06:22] VITALS: BP 110/70; TEMP 97.2; O2SAT 95
[2024-07-01 15:22] VITALS: BP 133/89; TEMP 98.9; O2SAT 100
[2024-07-02 06:33] VITALS: BP 108/68; TEMP 98.1; O2SAT 95
[2024-07-02 16:16] VITALS: BP 121/86; TEMP 97.6; O2SAT 100
[2024-07-03 06:24] VITALS: BP 114/76; TEMP 97.7; O2SAT 96
[2024-07-03 14:51] VITALS: BP 97/56; TEMP 98.6; O2SAT 96
[2024-07-04 06:45] VITALS: BP 107/78; TEMP 97.9; O2SAT 95
[2024-07-04] MEDS ORDERED: OLAN1TAB16 PO (12:37)
[2024-07-04] MEDS ORDERED: VENTAER INH (12:37)
[2024-07-04] MEDS ORDERED: TRAZ-252 PO (12:37)
[2024-07-04] MEDS ORDERED: PANT40TA29 PO (12:37)
[2024-07-04] MEDS ORDERED: SENO8.6T5 PO (12:37)
[2024-07-04] MEDS ORDERED: HYDR-3363 PO (12:37)
[2024-07-04] MEDS ORDERED: DIVA125C6 PO (12:37)
[2024-07-04] MEDS ORDERED: THIA100TA PO (12:37)
== END 2024-07-04 13:25 | disposition home or self-care (01) | DRG 885 ==
LOC: M ED 06:00 → M ED INP 20:15 → M PSY 22:30
PROVIDERS: ADMIT Psychiatry & Neurology Psychiatry; ATTEND Psychiatry & Neurology Psychiatry
DX: F20.9 Schizophrenia, unspecified (principal); G93.41 Metabolic encephalopathy; E87.0 Hyperosmolality and hypernatremia; F79 Unspecified intellectual disabilities; F41.0 Panic disorder [episodic paroxysmal anxiety]; F43.10 Post-traumatic stress disorder, unspecified; F42.9 Obsessive-compulsive disorder, unspecified; M25.561 Pain in right knee; K59.00 Constipation, unspecified; R78.89 Finding of other specified substances, not normally found in blood; Z79.899 Other long term (current) drug therapy; Z88.8 Allergy status to other drugs, medicaments and biological substances; Z87.820 Personal history of traumatic brain injury

== ENCOUNTER 2024-08-17 22:58 | Inpatient (IN) | payer MEDICARE, MEDICAID ==
[~2024-08-17] VITALS: Ht 165.1 cm; Wt 59.1 kg
[~2024-08-17 22:58] MED LIST changes: +DIVA125C6 PO; +SENO8.6T5 PO; +THIA100TA PO; +TRAZ-252 PO; +VENL100T PO; +VENL225T32 PO; +VENL75TA2 PO; +VENTAER INH; +ZYPR5TAB2 PO
[2024-08-18] MEDS ORDERED: IBUPROFEN 400MG TAB PO PRN (00:40)
[2024-08-18] MEDS ORDERED: MOM 30ML SUSPENSION UDC PO PRN (00:40)
[2024-08-18] MEDS ORDERED: MAALOX 30 ML SUSP *UDC PO PRN (00:40)
[2024-08-18] MEDS ORDERED: traZODone 50 MG TAB PO PRN (00:40)
[2024-08-18] MEDS ORDERED: ALBUTEROL 90 MCG/ACT 8GM HFA INHALER INH PRN ×2 (00:40→09:20)
[2024-08-18] MEDS ORDERED: TRAZ-252 PO (01:02)
[2024-08-18] MEDS ORDERED: ALBU8.5H INH (01:02)
[2024-08-18] MEDS ORDERED: CLON0.5T2 PO (01:02)
[2024-08-18] MEDS ORDERED: DIVA125C6 PO (01:02)
[2024-08-18] MEDS ORDERED: SENN-186 PO (01:02)
[2024-08-18] MEDS ORDERED: THIA100T7 PO (01:02)
[2024-08-18] MEDS ORDERED: HOME MED LIST COMPLETE! XX SCH (01:05)
[2024-08-18 06:16] VITALS: BP 113/74; TEMP 97.5; O2SAT 98
[2024-08-18] MEDS: NICOTINE 14 MG/24 HR TRANSDERMAL TD SCH (09:00)
[2024-08-18] MEDS: THIAMINE 100 MG TAB PO SCH (09:54)
[2024-08-18] MEDS: VENLAFAXINE **XR** 75MG CAPSULE PO SCH (09:54)
[2024-08-18] MEDS: DIVALPROEX SPRINKLE 125 MG CAP PO SCH (10:27)
[2024-08-18 14:40] VITALS: BP 101/77; TEMP 98.4; O2SAT 97
[2024-08-18] MEDS: clonazePAM 0.5 MG TAB PO PRN (20:04)
[2024-08-18] MEDS: traZODone 50 MG TAB PO PRN (20:04)
[2024-08-19 06:23] VITALS: BP 144/83; TEMP 97.8; O2SAT 99
[2024-08-19] MEDS: OLANZapine 5 MG TAB PO SCH (08:30)
[2024-08-19] MEDS: PANTOPRAZOLE 40MG TAB (PROTONIX) PO SCH (08:30)
[2024-08-19 15:53] VITALS: BP 129/86; TEMP 97.3; O2SAT 100
[2024-08-19] MEDS: OLANZapine ORAL DISINTEGRATING TAB 5MG PO PRN (19:56)
[2024-08-20 07:07] VITALS: BP 115/68; TEMP 97.4; O2SAT 99
[2024-08-20 14:48] VITALS: BP 120/87; TEMP 97.5; O2SAT 98
[2024-08-21 06:23] VITALS: BP 133/73; TEMP 98; O2SAT 97
[2024-08-21 15:21] VITALS: BP 123/83; TEMP 97.3; O2SAT 96
[2024-08-22 06:42] VITALS: BP 128/67; TEMP 97.3; O2SAT 98
[2024-08-22 14:55] VITALS: BP 125/84; TEMP 97.6; O2SAT 98
[2024-08-22 18:39] VITALS: BP 147/90; TEMP 98.1; O2SAT 98
[2024-08-23 06:12] VITALS: BP 128/78; TEMP 97.1; O2SAT 98
[2024-08-23] MEDS: diphenhydrAMINE 25MG CAP PO PRN (08:38)
[2024-08-23 16:34] VITALS: BP 144/88; TEMP 98.3
[2024-08-23] MEDS: traZODone 100 MG TAB PO PRN (20:32)
[2024-08-23 23:46] VITALS: BP 137/83; TEMP 98.3; O2SAT 97
[2024-08-24 16:39] VITALS: BP 125/77; TEMP 97.7; O2SAT 97
[2024-08-25 17:19] VITALS: BP 136/85; TEMP 98.2; O2SAT 96
[2024-08-26 06:34] VITALS: BP 126/83; TEMP 97.2; O2SAT 99
[2024-08-26] MEDS: ACETAMINOPHEN 325 MG TAB PO PRN (12:11)
[2024-08-26 15:25] VITALS: BP 123/83; TEMP 97.4; O2SAT 100
[2024-08-26 21:39] VITALS: BP 156/91; TEMP 97.3; O2SAT 97
[2024-08-27 06:49] VITALS: BP 111/70; TEMP 97.1; O2SAT 99
[2024-08-27 15:50] VITALS: BP 132/78; TEMP 97.4; O2SAT 97
[2024-08-28 06:24] VITALS: BP 127/74; TEMP 98.1; O2SAT 99
[2024-08-28 11:32] LABS: BLOOD UREA NITROGEN 18 MG/DL (9-23); CALCIUM LEVEL 8.6 MG/DL (8.5-10.1); CARBON DIOXIDE LEVEL 31 MMOL/L (20-31); CHLORIDE LEVEL 105 MMOL/L (98-107); CREATININE FOR GFR 0.97 MG/DL (0.70-1.30); GLOMERULAR FILTRATION RATE > 60.0 (>56); GLUCOSE, FASTING 73 MG/DL (60-100); POTASSIUM SERUM 4.6 MMOL/L (3.5-5.1); SODIUM LEVEL 141 MMOL/L (136-145)
[2024-08-28 15:28] VITALS: BP 148/92; TEMP 98.2; O2SAT 96
[2024-08-29] MEDS: NITROFURANTOIN (MACROBID) 100 MG CAP PO SCH (09:31)
[2024-08-29 16:00] VITALS: BP 142/84; TEMP 97.8; O2SAT 96
[2024-08-29 16:47] LABS: KETONE, URINE AUTO RFX 1+ mg/dL (NEGATIVE); LEUKOCYTE ESTERASE UR AUTO RFX NEGATIVE (NEGATIVE); MUCUS, URINE RFX SMALL (NEGATIVE); NITRITE, URINE AUTO RFX NEGATIVE (NEGATIVE); RBC, URINE AUTO RFX 0 /HPF (0-3); SQUAM EPITHELIAL CELL UR AURFX 0 /HPF (0-6); WBC, URINE AUTO RFX 1 /HPF (0-3)
[2024-08-30 16:47] VITALS: BP 129/78; TEMP 98.5; O2SAT 98
[2024-08-30] MEDS: QUEtiapine FUMARATE 50MG TAB PO SCH (20:34)
[2024-08-31 01:38] VITALS: BP 117/78; TEMP 98; O2SAT 97
[2024-08-31 15:28] VITALS: BP 110/68; TEMP 98.7; O2SAT 98
[2024-09-01 06:33] VITALS: BP 117/66; TEMP 97.3; O2SAT 96
[2024-09-01] MEDS ORDERED: QUET50TA4 PO (11:29)
== END 2024-09-01 14:02 | disposition home or self-care (01) | DRG 885 ==
LOC: M ED 22:58 → M ED INP 08-18 00:38 → M PSY 08-18 02:25
PROVIDERS: ADMIT Psychiatry & Neurology Neurology; ATTEND Psychiatry & Neurology Psychiatry
DX: F20.9 Schizophrenia, unspecified (principal); N39.0 Urinary tract infection, site not specified; F79 Unspecified intellectual disabilities; N39.41 Urge incontinence; F43.10 Post-traumatic stress disorder, unspecified; F41.9 Anxiety disorder, unspecified; F42.9 Obsessive-compulsive disorder, unspecified; G43.909 Migraine, unspecified, not intractable, without status migrainosus; J45.909 Unspecified asthma, uncomplicated; K21.9 Gastro-esophageal reflux disease without esophagitis; Z79.899 Other long term (current) drug therapy; Z88.8 Allergy status to other drugs, medicaments and biological substances; Z87.820 Personal history of traumatic brain injury; G31.83 Neurocognitive disorder with Lewy bodies; F02.80 Dementia in other diseases classified elsewhere, unspecified severity, without behavioral disturbance, psychotic disturbance, mood disturbance, and anxiety

== ENCOUNTER 2024-09-05 00:29 | Inpatient (IN) | payer MEDICARE, MEDICAID ==
[~2024-09-05] VITALS: Ht 165.1 cm; Wt 68.0 kg
[~2024-09-05 00:29] MED LIST changes: +ALBU8.5H INH; +SENN-186 PO; +THIA100T7 PO
[2024-09-05] MEDS ORDERED: QUET50TA4 PO (08:05)
[2024-09-05] MEDS ORDERED: HOME MED LIST COMPLETE! XX SCH (08:05)
[2024-09-05 17:30] VITALS: BP 125/70; TEMP 98.5; O2SAT 94
[2024-09-05] MEDS ORDERED: MAALOX 30 ML SUSP *UDC PO PRN (20:20)
[2024-09-05] MEDS ORDERED: IBUPROFEN 400MG TAB PO PRN (20:20)
[2024-09-05] MEDS: diphenhydrAMINE 25MG CAP PO PRN (20:54)
[2024-09-05] MEDS: LORazepam 1 MG TAB PO PRN (20:54)
[2024-09-05] MEDS: OLANZapine ORAL DISINTEGRATING TAB 5MG PO PRN (20:54)
[2024-09-05] MEDS: traZODone 50 MG TAB PO PRN (20:54)
[2024-09-06] MEDS: NICOTINE 14 MG/24 HR TRANSDERMAL TD SCH (08:14)
[2024-09-06] MEDS ORDERED: clonazePAM 0.5 MG TAB PO PRN (09:05)
[2024-09-06] MEDS: THIAMINE 100 MG TAB PO SCH (10:26)
[2024-09-06] MEDS: OLANZapine 5 MG TAB PO SCH (10:26)
[2024-09-06] MEDS: VENLAFAXINE **XR** 75MG CAPSULE PO SCH (10:26)
[2024-09-06] MEDS: DIVALPROEX SPRINKLE 125 MG CAP PO SCH (10:27)
[2024-09-06] MEDS: PANTOPRAZOLE 40MG TAB (PROTONIX) PO SCH (10:27)
[2024-09-06] MEDS ORDERED: OLANZapine ORAL DISINTEGRATING TAB 5MG PO PRN (11:20)
[2024-09-06 15:46] VITALS: BP 97/58; TEMP 98; O2SAT 98
[2024-09-06] MEDS ORDERED: ALBUTEROL 90 MCG/ACT 8GM HFA INHALER INH PRN (16:20)
[2024-09-06] MEDS ORDERED: SENNA 8.6 MG TAB (SENOKOT) PO PRN (16:20)
[2024-09-06] MEDS: QUEtiapine FUMARATE 50MG TAB PO SCH (20:50)
[2024-09-06] MEDS: levETIRAcetam 250MG TABLET (KEPPRA) PO SCH (20:50)
[2024-09-07 06:40] VITALS: BP 132/73; TEMP 97.2; O2SAT 99
[2024-09-07 17:05] VITALS: BP 136/85; TEMP 97.3; O2SAT 97
[2024-09-08 06:36] VITALS: BP 104/66; TEMP 97.1; O2SAT 98
[2024-09-08] MEDS: MOM 30ML SUSPENSION UDC PO PRN (11:38)
[2024-09-08 16:20] VITALS: BP 117/82; TEMP 97.9; O2SAT 95
[2024-09-09 06:38] VITALS: BP 116/67; TEMP 97.9; O2SAT 97
[2024-09-09 15:33] VITALS: BP 118/73; TEMP 97.3; O2SAT 98
[2024-09-10 06:48] VITALS: BP 105/59; TEMP 97.6; O2SAT 97
[2024-09-10] MEDS: ACETAMINOPHEN 325 MG TAB PO PRN (09:26)
[2024-09-10 15:35] VITALS: BP 111/67; TEMP 97.9; O2SAT 99
[2024-09-11 07:04] VITALS: BP 110/72; TEMP 97.6; O2SAT 98
[2024-09-12] MEDS ORDERED: KEPP250T5 PO (11:07)
== END 2024-09-12 16:23 | disposition home or self-care (01) | DRG 885 ==
LOC: M ED 00:29 → M ED INP 16:08 → M PSY 17:27
PROVIDERS: ADMIT Psychiatry & Neurology Psychiatry; ATTEND Psychiatry & Neurology Psychiatry
DX: F25.0 Schizoaffective disorder, bipolar type (principal); F71 Moderate intellectual disabilities; F42.9 Obsessive-compulsive disorder, unspecified; F43.10 Post-traumatic stress disorder, unspecified; F41.9 Anxiety disorder, unspecified; J45.909 Unspecified asthma, uncomplicated; K21.9 Gastro-esophageal reflux disease without esophagitis; Z87.820 Personal history of traumatic brain injury; R56.9 Unspecified convulsions; Z79.899 Other long term (current) drug therapy; Z88.8 Allergy status to other drugs, medicaments and biological substances